=== PATIENT | female | born 1995 | race Caucasian/White ===

== ENCOUNTER 2018-03-09 02:37 | Emergency (ER) | payer BC ==
[2018-03-09] MEDS ORDERED: valACYclovir 500 MG Tab PO ONE (03:10)
[2018-03-09] MEDS ORDERED: HYDROmorphone 1 MG/ML Syringe IVPUSH ONE (03:10)
[2018-03-09] MEDS ORDERED: Ondansetron 4 MG/2 ML SDV IVPUSH ONE (03:10)
[2018-03-09] MEDS ORDERED: Dextrose 5%-0.9% NaCl 1,000 ML IV SCH (03:15)
[2018-03-09] MEDS ORDERED: Ketorolac 30 MG/ML SDV IVPUSH SCH (03:15)
--- NOTE | 2018-03-09 03:15 | EDM.PDOC ---
ED HPI GENERAL MEDICAL PROBLEM - General Chief Complaint: ENT Problem Stated Complaint: SORE TONGUE Time Seen by Provider: 03/09/18 03:09 Source of Information: Reports: Patient History Limitations: Reports: No Limitations - History of Present Illness INITIAL COMMENTS - FREE TEXT/NARRATIVE: 22-year-old female presents to the ED with acute onset of severe stomatitis 48 hours. So bad she can hardly swallow at all. She has had very little to eat or drink in the last 24 hours. Patient has been seen in the walk-in clinic and had a negative Monospot negative strep screen and negative yeast screen. Patient states her lymph nodes are severely sore. She is febrile with no obvious chills. Her temperature is 100.6 does have a headache. Patient states she is sexually active. No prior similar problems. No history of cold sores. Has been taking Motrin every 6 hours for headache and pain relief with minimal relief. Also using a mixed up solution containing Benadryl and Maalox similar to medical mouthwash gets relief for only a a few minutes. Denies cough or sputum production. Denies diarrhea nausea or vomiting. Denies genitourinary complaints. Patient was started on a Medrol Dosepak of which she's taken 1 day of medication. Onset: Sudden Onset Date: 03/06/18 Duration: Day(s):, Constant, Getting Worse Location: Reports: Neck (Severe oral pain involving her tongue gingiva throat) Quality: Reports: Ache, Burning, Other Severity: Severe (Anus 10 on a 10) Improves with: Reports: Medication (Motrin helps a little) Worsens with: Reports: Other Context: Denies: Activity (Swallowing trying to eat.), Exercise, Lifting, Sick Contact, Trauma, Other Associated Symptoms: Reports: Fever/Chills, Headaches, Loss of Appetite, Malaise , Rash. Denies: Chest Pain, cough w sputum, Diaphoresis, Nausea/Vomiting, Seizure, Shortness of Breath (Oral stomatitis), Syncope Treatments ORDER DETAILER: Reports: NSAIDS (Motrin.) Mouth/tongue Pain Score (Numeric/FACES): 8 - Related Data Allergies Allergy/AdvReac Type Severity Reaction Status Date / Time No Known Allergies Allergy Verified 03/09/18 03:18 Home Meds: Home Meds methylPREDNISolone [Medrol] 1 dose PO ASDIRECTED 03/09/18 [History] oxyCODONE HCl/Acetaminophen [Percocet 5-325 mg Tablet] 1 - 2 each PO Q4H PRN # 24 tablet 03/09/18 [Rx] valACYclovir [Valtrex] 1,000 mg PO TID #21 tab 03/09/18 [Rx] Past Medical History Neurological History: Reports: Other (See Below) Other Neuro History: fibromyalgia - Past Surgical History HEENT Surgical History: Reports: Adenoidectomy, Myringotomy w Tube(s), Tonsillectomy Social & Family History - Tobacco Use Smoking Status *Q: Never Smoker - Caffeine Use Caffeine Use: Reports: None - Recreational Drug Use Recreational Drug Use: No - Living Situation & Occupation Living situation: Reports: Single Occupation: Unemployed ED ROS ENT - Review of Systems Review Of Systems: See Below Constitutional: Reports: Fever, Chills, Malaise, Weakness, Fatigue, Decreased Appetite HEENT: Reports: Throat Pain, Other (Severe throat pain or tongue pain) Respiratory: Denies: Shortness of Breath, Wheezing, Pleuritic Chest Pain, Cough Cardiovascular: Reports: Lightheadedness. Denies: Chest Pain, Blood Pressure Problem, Claudication, Dyspnea on Exertion, Edema, Orthopnea Endocrine: Reports: Fatigue (At times with standing up) GI/Abdominal: Denies: Constipation, Diarrhea : Reports: No Symptoms Musculoskeletal: Reports: No Symptoms Skin: Reports: Rash (Severe oral stomatitis) Neurological: Reports: No Symptoms Psychiatric: Reports: No Symptoms Hematologic/Lymphatic: Reports: No Symptoms Immunologic: Reports: No Symptoms ED EXAM, ENT - Physical Exam Exam: See Below Exam Limited By: No Limitations General Appearance: Alert, WD/WN, Moderate Distress, Other (Facial flushing and very warm to palpation. 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 She can't remember how many times she has had tubes. She believes her hearing is decreased bilaterally.) Nose: Normal Inspection Mouth/Throat: Gum Swelling, Lip Ulcers, Other (Patient has diffuse ulcerations of the oral cavity involving the soft palate both buccal mucosas the gingiva and severe ulcerative glossitis. For the mouth is intact. Tonsils are absent.). No: Dental Tenderness, Dental Trauma Head: Atraumatic, Normocephalic Neck: Normal Inspection, Full Range of Motion, Lymphadenopathy (L) (Mild very tender mild very tender), Lymphadenopathy (R). No: Thyromegaly Respiratory/Chest: No Respiratory Distress, Lungs Clear, Normal Breath Sounds, Chest Non-Tender Cardiovascular: Normal Peripheral Pulses, No Edema, No Gallop, No Murmur, No Rub , Tachycardia (Resting heart rate of 114 per minute presumably due to fever but also compounded by poor oral intake over the last 24 hours) GI/Abdominal: Normal Bowel Sounds, Soft, Non-Tender, No Organomegaly, No Mass, Pelvis Stable Back: Normal Inspection, Full Range of Motion. No: CVA Tenderness (L), CVA Tenderness (R) Extremities: Normal Inspection, Normal Range of Motion, Non-Tender, No Pedal Edema Neurological: Alert, Oriented, CN II-XII Intact, Normal Cognition Psychiatric: Anxious Skin: Warm, Dry, Intact, Other (Diffuse orals stomatitis involving the tongue buccal mucosa and gingiva and soft palate. Also the posterior oropharynx is involved. 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) Course - Vital Signs Last Recorded V/S: Last Vital Signs Temp 38.8 C H 03/09/18 03:56 Pulse 114 H 03/09/18 02:47 Resp 16 03/09/18 02:47 BP 137/92 H 03/09/18 02:47 Pulse Ox 94 L 03/09/18 02:47 - Orders/Labs/Meds Orders: Active Orders 24 hr Category Date Time Status Dextrose 5%-0.9% NaCl [Dextrose 5%-Normal Saline] 1,000 Med 03/09/18 03:15 Active ml IV ASDIRECTED Ketorolac [Toradol] Med 03/09/18 03:15 Active 30 mg IVPUSH ONETIME Medication Orders Dextrose/Sodium Chloride (Dextrose 5%-Normal Saline) 1,000 mls @ 999 mls/hr IV ASDIRECTED KEV Last Admin: 03/09/18 03:18 Dose: 999 mls/hr Ketorolac Tromethamine (Toradol) 30 mg IVPUSH ONETIME KEV Last Admin: 03/09/18 03:19 Dose: 30 mg Labs: Laboratory Tests 03/09/18 03/09/18 03/09/18 Range/Units 03:25 03:25 03:25 WBC 10.67 H (3.98-10.04) K/mm3 RBC 5.11 (3.98-5.22) M/mm3 Hgb 15.0 (11.2-15.7) gm/L Hct 43.4 (34.1-44.9) % MCV 84.9 (79.4-94.8) fl MCH 29.4 (25.6-32.2) pg MCHC 34.6 (32.2-35.5) g/dl RDW Std Deviation 40.3 (36.4-46.3) fL Plt Count 203 (182-369) K/mm3 MPV 10.2 (9.4-12.3) fl Neutrophils % (Manual) 79 H (40-60) % Band Neutrophils % 0 (0-10) % Lymphocytes % (Manual) 15 L (20-40) % Atypical Lymphs % 0 % Monocytes % (Manual) 6 (2-10) % Eosinophils % (Manual) 0 L (0.7-5.8) % Basophils % (Manual) 0 L (0.1-1.2) Platelet Estimate Adequate RBC Morph Comment Normal Sodium 137 (136-145) mEq/L Potassium 4.1 (3.5-5.1) mEq/L Chloride 101 (98-107) mEq/L Carbon Dioxide 27 (21-32) mEq/L Anion Gap 13.1 (5-15) BUN 10 (7-18) mg/dL Creatinine 1.1 H (0.55-1.02) mg/dL Est Cr Clr Drug Dosing 69.86 mL/min Estimated GFR (MDRD) > 60 (>60) mL/min BUN/Creatinine Ratio 9.1 L (14-18) Glucose 125 H (74-106) mg/dL Calcium 9.0 (8.5-10.1) mg/dL Total Bilirubin 0.4 (0.2-1.0) mg/dL AST 17 (15-37) U/L ALT 16 (14-59) U/L Alkaline Phosphatase 34 L (46-116) U/L C-Reactive Protein 1.6 H* (<1.0) mg/dL Total Protein 7.3 (6.4-8.2) g/dl Albumin 4.0 (3.4-5.0) g/dl Globulin 3.3 gm/dL Albumin/Globulin Ratio 1.2 (1-2) HCG, Qual Negative (NEGATIVE) Meds: Medications Generic Name Dose Route Start Last Admin Trade Name Danis PRN Reason Stop Dose Admin Dextrose/Sodium Chloride 1,000 mls @ 999 mls/hr 03/09/18 03:15 03/09/18 03:18 Dextrose 5%-Normal Saline IV 999 mls/hr ASDIRECTED KEV Administration Ketorolac Tromethamine 30 mg 03/09/18 03:15 03/09/18 03:19 Toradol IVPUSH 30 mg ONETIME KEV Administration Discontinued Medications Generic Name Dose Route Start Last Admin Trade Name Danis PRN Reason Stop Dose Admin Acetaminophen 975 mg 03/09/18 03:33 03/09/18 03:56 Tylenol PO 03/09/18 03:34 975 mg NOW ONE Administration Hydromorphone HCl 1 mg 03/09/18 03:10 03/09/18 03:19 Dilaudid IVPUSH 03/09/18 03:11 1 mg ONETIME ONE Administration Ondansetron HCl 4 mg 03/09/18 03:10 03/09/18 03:19 Zofran IVPUSH 03/09/18 03:11 4 mg ONETIME ONE Administration Valacyclovir HCl 1,000 mg 03/09/18 03:10 03/09/18 03:19 Valtrex PO 03/09/18 03:11 1,000 mg ONETIME ONE Administration - Radiology Interpretation Free Text/Narrative:: 22-year-old female presents with a 2 day history of severe stomatitis. Patient is in severe pain at this time unable to sleep unable to swallow unable to eat. She was seen in the clinic yesterday and had a negative Monospot. Negative strep screen. Negative yeast screen. She was placed on a Medrol Dosepak. She is taking Motrin 600 mg every 6 hours. She is taking a miracle mouthwash that she mixes up which is mostly Maalox and Benadryl. Examination reveals diffuse ulcerative stomatitis involving the tongue soft palate buccal mucosa and gingiva clinically has primary herpes simplex stomatitis. Plan IV D5 normal saline at open. Given Dilaudid 1 mg IV with Zofran 4 mg IV and Toradol 30 mg IV for acute pain relief. Will also give Tylenol 975mg orally for fever relief. Will also give Delsym severe 1 g orally. CBC CMP and CRP to be done. Also be a beta-hCG serum sample. - Re-Assessments/Exams Free Text/Narrative Re-Assessment/Exam: 03/09/18 04:12 Labs are back. White count is mildly elevated at 10.67 with left shift of 79% neutrophils and no band cells reported. Hemoglobin is 15.0 with hematocrit of 43.4. Platelet count is normal 203,000. Sodium is 137 with potassium of 4.1. Chloride is 101 with a bicarbonate 27. Anion gap is 13.1. BUNs 10 with a creatinine of 1.1. GFR is greater than 60. Glucose is 125. Calcium 9.0. Liver function is normal. C-reactive protein minimally elevated at 1.6. HCG was negative. Patient reports pain is much better. She is neat nearly completed a full liter of IV fluids. Fever is breaking. Plan she'll be discharged home on Ivette Kabir 1 g 3 times a day for one week. Percocet tabs 5// 25 24 tablets one or 2 every 4-6 hours needed for pain relief. Continue Motrin 600 mg every 6 hours to reduce pain and inflammation and fever. Encouraged fluids as much as possible. Diet soft diet such as yogurt ,puddings etc. until able to eat normally. Will be given to excuse her from the work place for the next week. Departure - Departure Time of Disposition: 04:18 Disposition: Home, Self-Care 01 Condition: Fair Clinical Impression: Primary herpes simplex with gingivostomatitis - Discharge Information *PRESCRIPTION DRUG MONITORING PROGRAM REVIEWED*: Not Applicable *COPY OF PRESCRIPTION DRUG MONITORING REPORT IN PATIENT TAIWO: Not Applicable Prescriptions: oxyCODONE HCl/Acetaminophen [Percocet 5-325 mg Tablet] 1 - 2 each PO Q4H PRN # 24 tablet PRN Reason: pain relief. valACYclovir [Valtrex] 1,000 mg PO TID #21 tab Referrals: PCP,None [Primary Care Provider] - Forms: ED Department Discharge, ED Return to Work/School Form Additional Instructions: Evaluation in the emergency room tonight in regards to severe throat and mouth pain. This developed suddenly 48 hours ago. Examination reveals acute infection with the herpes simplex virus which we call gingiva stomatitis. This means inflammation of the oral cavity including the tongue and gums. You're treated in the eye ER with IV fluids to rehydrate you and pain medication Dilaudid 1 mg with Toradol 30 mg IV. Also initial dose of valacyclovir 1 g was given by mouth to start treatment for herpes simplex infection and with Tylenol 975 mg for fever. Treatment at home is fluids as tolerated. Ideally diluted Gatorade/ Powerade would be the best fluid supplements prevent dehydration. Diet of course to be soft such as puddings possibly yogurt and other foods that don't sting or burn. Not be able to tolerate anything acidic such as orange juice, ketchup, mustard, pickles etc. Treatment is to be Motrin 600 mg every 6 hours to reduce pain and inflammation and fever. Percocet tabs 5/325 mg one or 2 every 4-6 hours for pain relief. Valcyclovir-- 1 g 3 times daily for the next week. Note given to excuse her from the work place for the next week. This illness typically last 7-10 days before you are completely cleared up. You are now prone to development of cold sores in the future. Return to the ED if unable to drink or eat in the next 24-36 hours for rehydration IV if necessary. - My Orders Last 24 Hours: My Active Orders 03/09/18 03:15 Dextrose 5%-0.9% NaCl [Dextrose 5%-Normal Saline] 1,000 ml IV ASDIRECTED Ketorolac [Toradol] 30 mg IVPUSH ONETIME - Assessment/Plan Last 24 Hours: My Active Orders 03/09/18 03:15 Dextrose 5%-0.9% NaCl [Dextrose 5%-Normal Saline] 1,000 ml IV ASDIRECTED Ketorolac [Toradol] 30 mg IVPUSH ONETIME
[2018-03-09] MEDS ORDERED: Acetaminophen 325 MG Tab PO ONE (03:33)
== END 2018-03-09 04:35 | disposition home or self-care (01) ==
LOC: JD.ED 02:37
DX: B00.2 Herpesviral gingivostomatitis and pharyngotonsillitis (principal)
CPT/HCPCS: 36415; 80053; 84703; 85007; 85027; 86140; 96361; 96374; 96375; 99283; A9270; J1170; J1885; J2405; J7042; 99284

== ENCOUNTER 2018-03-10 19:48 | Inpatient (IN) | payer BC ==
[2018-03-10] MEDS ORDERED: Sodium Chloride 0.9% 1,000 ML IV ONE ×2 (20:24→22:39)
[2018-03-10] MEDS ORDERED: Sodium Chloride 0.9% 10 ML Syringe FLUSH PRN (20:25)
[2018-03-10] MEDS ORDERED: HYDROmorphone 0.5 MG/0.5 ML SYRINGE IVPUSH ONE ×2 (20:25→22:34)
[2018-03-10] MEDS ORDERED: Ketorolac 30 MG/ML SDV IVPUSH ONE (20:25)
--- NOTE | 2018-03-10 20:46 | EDM.PDOC ---
ED HPI GENERAL MEDICAL PROBLEM - General Chief Complaint: General Stated Complaint: INFECTION IN MOUTH GETTING WORSE Time Seen by Provider: 03/10/18 20:11 Source of Information: Reports: Patient History Limitations: Reports: No Limitations - History of Present Illness INITIAL COMMENTS - FREE TEXT/NARRATIVE: 22-year-old female presents for pain management for severe herpes stomatits. Has been present going on for about the last 3-4 days. She states initially started with lymphadenopathy. She that appreciated sores in her mouth. She presented to the walk-in clinic. Test redone for strep, mono and yeast. All returned negative. She was started on Medrol Dosepak. Symptoms worsens and she presented to the ER 2 nights ago, diagnoised Herpes stomatitis and was started on Valtrex instructed to discontinue the Medrol Dosepak. She was also given Percocet for the pain. She has been taking the Valtrex as prescribed. She states that the symptoms are worsening. She states hardly swallow due to the pain. She reports feeling feverish and chilled. She reports severe pain in her mouth and throat and difficulty swallowing. She is also feeling that her throat is swelling. She reports voice changes. She is coughing a productive sputum. States she's never had anything like this before. Has previously had mono. Oral/Mouth Pain Score (Numeric/FACES): 10 - Related Data Allergies Allergy/AdvReac Type Severity Reaction Status Date / Time No Known Allergies Allergy Verified 03/10/18 19:59 Home Meds: Home Meds methylPREDNISolone [Medrol] 1 dose PO ASDIRECTED 03/09/18 [History] oxyCODONE HCl/Acetaminophen [Percocet 5-325 mg Tablet] 1 - 2 each PO Q4H PRN # 24 tablet 03/09/18 [Rx] valACYclovir [Valtrex] 1,000 mg PO TID #21 tab 03/09/18 [Rx] Past Medical History Neurological History: Reports: Other (See Below) Other Neuro History: fibromyalgia - Past Surgical History HEENT Surgical History: Reports: Adenoidectomy, Myringotomy w Tube(s), Tonsillectomy Social & Family History - Tobacco Use Smoking Status *Q: Unknown Ever Smoked - Caffeine Use Caffeine Use: Reports: None - Living Situation & Occupation Living situation: Reports: Single Occupation: Unemployed ED ROS GENERAL - Review of Systems Review Of Systems: See Below Constitutional: Reports: Fever, Chills HEENT: Reports: Throat Pain, Throat Swelling, Other (Mouth pain, difficulty swallowing due to pain. Ulcerative lesions to mouth.) Respiratory: Reports: Cough ED EXAM, GENERAL - Physical Exam Exam: See Below Exam Limited By: No Limitations General Appearance: Alert, WD/WN, No Apparent Distress, Mild Distress Ears: Normal External Exam, Other (scarring to the bilteral TMs, no erythema or bulding) Nose: Normal Inspection Throat/Mouth: Other (diffuse herpetic lesions to the buccal mucose, soft pallate and tongue; hot potatoe sounding voice) Neck: Lymphadenopathy (L), Lymphadenopathy (R), Other (Submandibular and anterior cervical lymphadenopathy appreciated bilaterally) Respiratory/Chest: No Respiratory Distress, Lungs Clear, Normal Breath Sounds Cardiovascular: Normal Peripheral Pulses, Regular Rate, Rhythm, No Murmur Neurological: Alert, Oriented, Normal Cognition Psychiatric: Normal Affect, Normal Mood Skin Exam: Warm, Dry, Normal Color Course - Vital Signs Last Recorded V/S: Last Vital Signs Temp 98.8 F 03/11/18 00:10 Pulse 74 03/11/18 00:10 Resp 18 03/11/18 00:10 BP 122/71 03/11/18 00:10 Pulse Ox 96 03/11/18 00:10 - Orders/Labs/Meds Orders: Active Orders 24 hr Category Date Time Status Patient Status [ADT] Routine ADT 03/10/18 23:53 Active Head wo Cont [CT] Stat Exams 03/10/18 20:58 Taken Soft Tissue Neck w Cont [CT] Stat Exams 03/10/18 20:25 Taken Sodium Chloride 0.9% [Normal Saline] 1,000 ml Med 03/10/18 22:39 Active IV ONETIME Sodium Chloride 0.9% [Saline Flush] Med 03/10/18 20:25 Active 10 ml FLUSH ASDIRECTED PRN Peripheral IV Insertion Adult [OM.PC] Routine Oth 03/10/18 20:24 Ordered Medication Orders Acetaminophen (Tylenol) 650 mg PO Q4H PRN PRN Reason: Pain/Fever Hydromorphone HCl (Dilaudid) 0.25 mg IVPUSH Q4H PRN PRN Reason: Pain Last Admin: 03/11/18 01:20 Dose: 0.25 mg Sodium Chloride (Normal Saline) 1,000 mls @ 125 mls/hr IV ONETIME ONE Stop: 03/11/18 06:38 Last Admin: 03/10/18 23:06 Dose: 125 mls/hr Acyclovir 385 mg/ Sodium (Chloride) 107.7 mls @ 100 mls/hr IV Q8H [facility] Lactated Ringer's (Ringers, Lactated) 1,000 mls @ 999 mls/hr IV ASDIRECTED KEV Stop: 03/12/18 02:31 Lactated Ringer's (Ringers, Lactated) 1,000 mls @ 100 mls/hr IV ASDIRECTED [facility] Ketorolac Tromethamine (Toradol) 30 mg IVPUSH Q6H KEV Stop: 03/13/18 00:01 Ondansetron HCl (Zofran) 4 mg IVPUSH Q8H PRN PRN Reason: Nausea Sodium Chloride (Saline Flush) 10 ml FLUSH ASDIRECTED PRN PRN Reason: Keep Vein Open Last Admin: 03/10/18 20:54 Dose: 10 ml Labs: Laboratory Tests 03/10/18 03/10/18 03/10/18 Range/Units 20:50 20:50 20:50 WBC 6.93 (3.98-10.04) K/mm3 RBC 5.05 (3.98-5.22) M/mm3 Hgb 14.7 (11.2-15.7) gm/L Hct 43.1 (34.1-44.9) % MCV 85.3 (79.4-94.8) fl MCH 29.1 (25.6-32.2) pg MCHC 34.1 (32.2-35.5) g/dl RDW Std Deviation 40.4 (36.4-46.3) fL Plt Count 167 L (182-369) K/mm3 MPV 9.9 (9.4-12.3) fl Neutrophils % (Manual) 51 (40-60) % Band Neutrophils % 0 (0-10) % Lymphocytes % (Manual) 37 (20-40) % Atypical Lymphs % 0 % Monocytes % (Manual) 12 H (2-10) % Eosinophils % (Manual) 0 L (0.7-5.8) % Basophils % (Manual) 0 L (0.1-1.2) Platelet Estimate Adequate Plt Morphology Comment Normal RBC Morph Comment Normal Sodium 140 (136-145) mEq/L Potassium 3.7 (3.5-5.1) mEq/L Chloride 104 (98-107) mEq/L Carbon Dioxide 28 (21-32) mEq/L Anion Gap 11.7 (5-15) BUN 9 (7-18) mg/dL Creatinine 1.0 (0.55-1.02) mg/dL Est Cr Clr Drug Dosing TNP Estimated GFR (MDRD) > 60 (>60) mL/min BUN/Creatinine Ratio 9.0 L (14-18) Glucose 93 (74-106) mg/dL Calcium 9.1 (8.5-10.1) mg/dL Total Bilirubin 0.5 (0.2-1.0) mg/dL AST 19 (15-37) U/L ALT 17 (14-59) U/L Alkaline Phosphatase 28 L (46-116) U/L C-Reactive Protein 3.4 H* (<1.0) mg/dL Total Protein 7.0 (6.4-8.2) g/dl Albumin 3.6 (3.4-5.0) g/dl Globulin 3.4 gm/dL Albumin/Globulin Ratio 1.1 (1-2) Monoscreen Negative (NEGATIVE) HIV-1 Ab Rapid Screen (NEGATIVE) 03/10/18 Range/Units 20:50 WBC (3.98-10.04) K/mm3 RBC (3.98-5.22) M/mm3 Hgb (11.2-15.7) gm/L Hct (34.1-44.9) % MCV (79.4-94.8) fl MCH (25.6-32.2) pg MCHC (32.2-35.5) g/dl RDW Std Deviation (36.4-46.3) fL Plt Count (182-369) K/mm3 MPV (9.4-12.3) fl Neutrophils % (Manual) (40-60) % Band Neutrophils % (0-10) % Lymphocytes % (Manual) (20-40) % Atypical Lymphs % % Monocytes % (Manual) (2-10) % Eosinophils % (Manual) (0.7-5.8) % Basophils % (Manual) (0.1-1.2) Platelet Estimate Plt Morphology Comment RBC Morph Comment Sodium (136-145) mEq/L Potassium (3.5-5.1) mEq/L Chloride (98-107) mEq/L Carbon Dioxide (21-32) mEq/L Anion Gap (5-15) BUN (7-18) mg/dL Creatinine (0.55-1.02) mg/dL Est Cr Clr Drug Dosing Estimated GFR (MDRD) (>60) mL/min BUN/Creatinine Ratio (14-18) Glucose (74-106) mg/dL Calcium (8.5-10.1) mg/dL Total Bilirubin (0.2-1.0) mg/dL AST (15-37) U/L ALT (14-59) U/L Alkaline Phosphatase (46-116) U/L C-Reactive Protein (<1.0) mg/dL Total Protein (6.4-8.2) g/dl Albumin (3.4-5.0) g/dl Globulin gm/dL Albumin/Globulin Ratio (1-2) Monoscreen (NEGATIVE) HIV-1 Ab Rapid Screen Negative (NEGATIVE) Meds: Medications Generic Name Dose Route Start Last Admin Trade Name Freq PRN Reason Stop Dose Admin Acetaminophen 650 mg 03/11/18 00:54 Tylenol PO Q4H PRN Pain/Fever Hydromorphone HCl 0.25 mg 03/11/18 00:56 03/11/18 01:20 Dilaudid IVPUSH 0.25 mg Q4H PRN Administration Pain Sodium Chloride 1,000 mls @ 125 mls/hr 03/10/18 22:39 03/10/18 23:06 Normal Saline IV 03/11/18 06:38 125 mls/hr ONETIME ONE Administration Acyclovir 385 mg/ Sodium 107.7 mls @ 100 mls/hr 03/11/18 08:00 Chloride IV Q8H [facility] Lactated Ringer's 1,000 mls @ 999 mls/hr 03/11/18 01:30 Ringers, Lactated IV 03/12/18 02:31 ASDIRECTED [facility] Lactated Ringer's 1,000 mls @ 100 mls/hr 03/11/18 02:30 Ringers, Lactated IV ASDIRECTED [facility] Ketorolac Tromethamine 30 mg 03/11/18 06:00 Toradol IVPUSH 03/13/18 00:01 Q6H KEV Ondansetron HCl 4 mg 03/11/18 01:29 Zofran IVPUSH Q8H PRN Nausea Sodium Chloride 10 ml 03/10/18 20:25 03/10/18 20:54 Saline Flush FLUSH 10 ml ASDIRECTED PRN Administration Keep Vein Open Discontinued Medications Generic Name Dose Route Start Last Admin Trade Name Freq PRN Reason Stop Dose Admin Hydromorphone HCl 0.5 mg 03/10/18 20:25 03/10/18 20:55 Dilaudid IVPUSH 03/10/18 20:26 0.5 mg ONETIME ONE Administration Hydromorphone HCl 0.5 mg 03/10/18 22:34 03/10/18 23:05 Dilaudid IVPUSH 03/10/18 22:35 0.5 mg ONETIME ONE Administration Sodium Chloride 1,000 mls @ 999 mls/hr 03/10/18 20:24 03/10/18 20:54 Normal Saline IV 03/10/18 21:24 999 mls/hr ONETIME ONE Administration Acyclovir 400 mg/ Sodium 108 mls @ 100 mls/hr 03/10/18 23:26 03/10/18 23:50 Chloride IV 03/11/18 00:30 100 mls/hr NOW STA Administration Iopamidol 80 ml 03/11/18 00:15 03/11/18 00:16 Isovue-300 (61%) IVPUSH 03/11/18 00:16 80 ml ONETIME ONE Administration Ketorolac Tromethamine 30 mg 03/10/18 20:25 03/10/18 20:58 Toradol IVPUSH 03/10/18 20:26 30 mg ONETIME ONE Administration Ketorolac Tromethamine 30 mg 03/10/18 23:26 03/10/18 23:50 Toradol IM 03/10/18 23:27 30 mg ONETIME ONE Administration Lorazepam 0.25 mg 03/11/18 00:55 03/11/18 01:22 Ativan IVPUSH 03/11/18 00:56 0.25 mg ONETIME ONE Administration - Radiology Interpretation Free Text/Narrative:: CT of the head without contrast impression per Vrad negative. No acute intercranial process. CT of the neck with IV contrast impression per Vrad no acute findings. - Re-Assessments/Exams Free Text/Narrative Re-Assessment/Exam: 03/10/18 22:16 I reviewed the labs and imaging with the patient. I do feel that she is improving and requires more time with the valtrex. Offered admission for pain control. She will discuss this with her brother mother and let me know shortly. 03/10/18 23:45 Patient ultimately decided to come in for inpatient management including fluids and pain control. Case was discussed with Dr. Bassett, hospitalist on-call. She agrees to admission. Asked we give acyclovir 5 mg/kg prior to going over to the floor as well as [address] Bassett feels she'll be best managed with NSAIDs and will not be treating her much with narcotics. Patient was made aware of this and she is still agreeable to coming in. Departure - Departure Time of Disposition: 23:40 Disposition: Admitted As Inpatient 67 Condition: Fair Clinical Impression: Primary herpes simplex with gingivostomatitis - Discharge Information *PRESCRIPTION DRUG MONITORING PROGRAM REVIEWED*: No *COPY OF PRESCRIPTION DRUG MONITORING REPORT IN PATIENT TAIWO: No - My Orders Last 24 Hours: My Active Orders 03/10/18 20:24 Peripheral IV Insertion Adult [OM.PC] Routine 03/10/18 20:25 Soft Tissue Neck w Cont [CT] Stat Sodium Chloride 0.9% [Saline Flush] 10 ml FLUSH ASDIRECTED PRN 03/10/18 20:58 Head wo Cont [CT] Stat 03/10/18 22:39 Sodium Chloride 0.9% [Normal Saline] 1,000 ml IV ONETIME 03/10/18 23:53 Patient Status [ADT] Routine - Assessment/Plan Last 24 Hours: My Active Orders 03/10/18 20:24 Peripheral IV Insertion Adult [OM.PC] Routine 03/10/18 20:25 Soft Tissue Neck w Cont [CT] Stat Sodium Chloride 0.9% [Saline Flush] 10 ml FLUSH ASDIRECTED PRN 03/10/18 20:58 Head wo Cont [CT] Stat 03/10/18 22:39 Sodium Chloride 0.9% [Normal Saline] 1,000 ml IV ONETIME 03/10/18 23:53 Patient Status [ADT] Routine
[2018-03-10] MEDS ORDERED: Acyclovir 400 MG in Sodium Chloride 0.9% 100 ML IV STA (23:26)
[2018-03-10] MEDS ORDERED: Ketorolac 30 MG/ML SDV IM ONE (23:26)
[2018-03-11] MEDS ORDERED: Iopamidol 612 MG/ML 100 ML Bottle IVPUSH ONE (00:15)
[2018-03-11] MEDS ORDERED: Acetaminophen Soln 650 MG/20.3 ML UD Cup PO PRN ×2 (00:54→07:44)
[2018-03-11] MEDS ORDERED: LORazepam 2 MG/ML SDV IVPUSH ONE (00:55)
[2018-03-11] MEDS ORDERED: HYDROmorphone 1 MG/ML Syringe IVPUSH PRN (00:56)
[2018-03-11] MEDS: Lactated Ringers 1,000 ML IV SCH ×4 (01:40→14:28)
[2018-03-11] MEDS: Ondansetron 4 MG/2 ML SDV IVPUSH PRN (01:48)
[2018-03-11] MEDS ORDERED: Scopolamine 1.5 MG Transdermal Patch TRDERM PRN (06:24)
[2018-03-11] MEDS: Ketorolac 30 MG/ML SDV IVPUSH SCH ×3 (06:28→17:03)
--- NOTE | 2018-03-11 07:17 | PCM.HP ---
H&P History of Present Illness - General Date of Service: 03/11/18 Admit Problem/Dx: Admission Diagnosis/Problem Admission Diagnosis/Problem Herpesviral gingivostomatitis and pharyngotonsillitis Source of Information: Patient, Provider History Limitations: Reports: No Limitations - History of Present Illness Initial Comments - Free Text/Narative: 22 year old who was seen in a walk in clinic presents with failed anti-viral therapy, she has been on Valtrex/Percocet/Medrol Dosepak. The patient over 48 hours had had increasing difficulty swallowing, change in voice and decreased appetite. She has had fever and chills for 2 days as well. Infectious work up with the exception of herpes simplex has been unremarkable including HIV. She had had a CT of head and neck which documented no compromise in her airway. She will be admitted to [facility] with telemetry. The patient is a full code. Onset of Symptoms: Reports: Gradual Symptom Onset Date: 03/05/18 Duration of Symptoms: Reports: Day(s):, Getting Worse Location: Reports: Neck Quality: Reports: Same as Previous Episode Severity: Severe Improves with: Reports: Medication Worsens with: Reports: None Associated Symptoms: Reports: Cough, Fever/Chills, Loss of Appetite, Nausea/ Vomiting, Weakness Oral/Mouth Pain Score (Numeric/FACES): 4 - Related Data Allergies/Adverse Reactions: Allergies Allergy/AdvReac Type Severity Reaction Status Date / Time No Known Allergies Allergy Verified 03/11/18 02:16 Home Medications: Home Meds methylPREDNISolone [Medrol] 1 dose PO ASDIRECTED 03/09/18 [History] oxyCODONE HCl/Acetaminophen [Percocet 5-325 mg Tablet] 1 - 2 each PO Q4H PRN # 24 tablet 03/09/18 [Rx] valACYclovir [Valtrex] 1,000 mg PO TID #21 tab 03/09/18 [Rx] Past Medical History Musculoskeletal History: Reports: Fibromyalgia Neurological History: Reports: Other (See Below) Other Neuro History: fibromyalgia Psychiatric History: Reports: Anxiety Other Psychiatric History: sees a therapist and is not on any meds for it - Infectious Disease History Infectious Disease History: Reports: Chicken Pox, Herpes, Influenza - Past Surgical History HEENT Surgical History: Reports: Adenoidectomy, Myringotomy w Tube(s), Tonsillectomy Social & Family History - Family History Family Medical History: Noncontributory - Tobacco Use Smoking Status *Q: Unknown Ever Smoked Second Hand Smoke Exposure: No - Caffeine Use Caffeine Use: Reports: None - Recreational Drug Use Recreational Drug Use: No - Living Situation & Occupation Living situation: Reports: Single Occupation: Unemployed H&P Review of Systems - Review of Systems: Review Of Systems: See Below General: Reports: Fever, Chills, Malaise, Weakness, Fatigue, Decreased Appetite HEENT: Reports: Sore Throat Pulmonary: Reports: No Symptoms Cardiovascular: Reports: No Symptoms Gastrointestinal: Reports: Difficulty Swallowing, Nausea Genitourinary: Reports: No Symptoms Musculoskeletal: Reports: Neck Pain Skin: Reports: No Symptoms Psychiatric: Reports: No Symptoms Neurological: Reports: No Symptoms Hematologic/Lymphatic: Reports: No Symptoms Immunologic: Reports: No Symptoms Exam - Exam Exam: See Below - Vital Signs Vital Signs: Last Vital Signs Temp 36.3 C 03/11/18 03:55 Pulse 72 03/11/18 03:55 Resp 18 03/11/18 03:55 BP 131/63 03/11/18 03:55 Pulse Ox 98 03/11/18 03:55 Weight: 76.929 kg - Exam Quality Assessment: DVT Prophylaxis General: Alert, Oriented, Cooperative HEENT: Conjunctiva Clear, Pupils Equal, Pupils Reactive, TMs Clear, Other ( cervical/submandibular lympadenopathy; edema/erythema tonsils), PERRLA Neck: Trachea Midline Lungs: Normal Respiratory Effort Cardiovascular: Regular Rate, Regular Rhythm GI/Abdominal Exam: Normal Bowel Sounds, Soft, Non-Tender, No Organomegaly, No Distention (Female) Exam: Deferred Rectal (Female) Exam: Deferred Back Exam: Normal Inspection Extremities: Normal Inspection, Normal Range of Motion, Non-Tender, Normal Capillary Refill Skin: Warm Neurological: Cranial Nerves Intact Neuro Extensive - Mental Status: Alert, Oriented x3, Normal Mood/Affect, Normal Cognition, Memory Intact Neuro Extensive - Motor, Sensory, Reflexes: CN II-XII Intact Psychiatric: Alert, Normal Affect, Normal Mood - Patient Data Lab Results Last 24 hrs: Laboratory Results - last 24 hr 03/10/18 03/10/18 03/10/18 Range/Units 20:50 20:50 20:50 WBC 6.93 (3.98-10.04) K/mm3 RBC 5.05 (3.98-5.22) M/mm3 Hgb 14.7 (11.2-15.7) gm/L Hct 43.1 (34.1-44.9) % MCV 85.3 (79.4-94.8) fl MCH 29.1 (25.6-32.2) pg MCHC 34.1 (32.2-35.5) g/dl RDW Std Deviation 40.4 (36.4-46.3) fL Plt Count 167 L (182-369) K/mm3 MPV 9.9 (9.4-12.3) fl Neut % (Auto) (34.0-71.1) % Lymph % (Auto) (19.3-51.7) % [place] % (Auto) (4.7-12.5) % Eos % (Auto) (0.7-5.8) Baso % (Auto) (0.1-1.2) % Neut # (Auto) (1.56-6.13) K/mm3 Lymph # (Auto) (1.18-3.74) K/mm3 [place] # (Auto) (0.24-0.36) K/mm3 Eos # (Auto) (0.04-0.36) K/mm3 Baso # (Auto) (0.01-0.08) K/mm3 Neutrophils % (Manual) 51 (40-60) % Band Neutrophils % 0 (0-10) % Lymphocytes % (Manual) 37 (20-40) % Atypical Lymphs % 0 % Monocytes % (Manual) 12 H (2-10) % Eosinophils % (Manual) 0 L (0.7-5.8) % Basophils % (Manual) 0 L (0.1-1.2) Platelet Estimate Adequate Plt Morphology Comment Normal RBC Morph Comment Normal Sodium 140 (136-145) mEq/L Potassium 3.7 (3.5-5.1) mEq/L Chloride 104 (98-107) mEq/L Carbon Dioxide 28 (21-32) mEq/L Anion Gap 11.7 (5-15) BUN 9 (7-18) mg/dL Creatinine 1.0 (0.55-1.02) mg/dL Est Cr Clr Drug Dosing TNP Estimated GFR (MDRD) > 60 (>60) mL/min BUN/Creatinine Ratio 9.0 L (14-18) Glucose 93 (74-106) mg/dL Lactic Acid (0.4-2.0) mmol/L Calcium 9.1 (8.5-10.1) mg/dL Total Bilirubin 0.5 (0.2-1.0) mg/dL AST 19 (15-37) U/L ALT 17 (14-59) U/L Alkaline Phosphatase 28 L (46-116) U/L C-Reactive Protein 3.4 H* (<1.0) mg/dL Total Protein 7.0 (6.4-8.2) g/dl Albumin 3.6 (3.4-5.0) g/dl Globulin 3.4 gm/dL Albumin/Globulin Ratio 1.1 (1-2) Monoscreen Negative (NEGATIVE) HIV-1 Ab Rapid Screen (NEGATIVE) 03/10/18 03/11/18 03/11/18 Range/Units 20:50 06:15 06:15 WBC 5.26 (3.98-10.04) K/mm3 RBC 4.65 (3.98-5.22) M/mm3 Hgb 13.6 (11.2-15.7) gm/L Hct 40.3 (34.1-44.9) % MCV 86.7 (79.4-94.8) fl MCH 29.2 (25.6-32.2) pg MCHC 33.7 (32.2-35.5) g/dl RDW Std Deviation 40.6 (36.4-46.3) fL Plt Count 161 L (182-369) K/mm3 MPV 10.1 (9.4-12.3) fl Neut % (Auto) 50.1 (34.0-71.1) % Lymph % (Auto) 34.8 (19.3-51.7) % [place] % (Auto) 13.7 H (4.7-12.5) % Eos % (Auto) 0.8 (0.7-5.8) Baso % (Auto) 0.4 (0.1-1.2) % Neut # (Auto) 2.64 (1.56-6.13) K/mm3 Lymph # (Auto) 1.83 (1.18-3.74) K/mm3 [place] # (Auto) 0.72 H (0.24-0.36) K/mm3 Eos # (Auto) 0.04 (0.04-0.36) K/mm3 Baso # (Auto) 0.02 (0.01-0.08) K/mm3 Neutrophils % (Manual) (40-60) % Band Neutrophils % (0-10) % Lymphocytes % (Manual) (20-40) % Atypical Lymphs % % Monocytes % (Manual) (2-10) % Eosinophils % (Manual) (0.7-5.8) % Basophils % (Manual) (0.1-1.2) Platelet Estimate Plt Morphology Comment RBC Morph Comment Sodium 142 (136-145) mEq/L Potassium 3.8 (3.5-5.1) mEq/L Chloride 107 (98-107) mEq/L Carbon Dioxide 29 (21-32) mEq/L Anion Gap 9.8 (5-15) BUN 7 (7-18) mg/dL Creatinine 0.8 (0.55-1.02) mg/dL Est Cr Clr Drug Dosing 96.06 Estimated GFR (MDRD) > 60 (>60) mL/min BUN/Creatinine Ratio 8.8 L (14-18) Glucose 83 (74-106) mg/dL Lactic Acid (0.4-2.0) mmol/L Calcium 8.8 (8.5-10.1) mg/dL Total Bilirubin (0.2-1.0) mg/dL AST (15-37) U/L ALT (14-59) U/L Alkaline Phosphatase (46-116) U/L C-Reactive Protein 2.9 H* (<1.0) mg/dL Total Protein (6.4-8.2) g/dl Albumin (3.4-5.0) g/dl Globulin gm/dL Albumin/Globulin Ratio (1-2) Monoscreen (NEGATIVE) HIV-1 Ab Rapid Screen Negative (NEGATIVE) 03/11/18 Range/Units 06:15 WBC (3.98-10.04) K/mm3 RBC (3.98-5.22) M/mm3 Hgb (11.2-15.7) gm/L Hct (34.1-44.9) % MCV (79.4-94.8) fl MCH (25.6-32.2) pg MCHC (32.2-35.5) g/dl RDW Std Deviation (36.4-46.3) fL Plt Count (182-369) K/mm3 MPV (9.4-12.3) fl Neut % (Auto) (34.0-71.1) % Lymph % (Auto) (19.3-51.7) % [place] % (Auto) (4.7-12.5) % Eos % (Auto) (0.7-5.8) Baso % (Auto) (0.1-1.2) % Neut # (Auto) (1.56-6.13) K/mm3 Lymph # (Auto) (1.18-3.74) K/mm3 [place] # (Auto) (0.24-0.36) K/mm3 Eos # (Auto) (0.04-0.36) K/mm3 Baso # (Auto) (0.01-0.08) K/mm3 Neutrophils % (Manual) (40-60) % Band Neutrophils % (0-10) % Lymphocytes % (Manual) (20-40) % Atypical Lymphs % % Monocytes % (Manual) (2-10) % Eosinophils % (Manual) (0.7-5.8) % Basophils % (Manual) (0.1-1.2) Platelet Estimate Plt Morphology Comment RBC Morph Comment Sodium (136-145) mEq/L Potassium (3.5-5.1) mEq/L Chloride (98-107) mEq/L Carbon Dioxide (21-32) mEq/L Anion Gap (5-15) BUN (7-18) mg/dL Creatinine (0.55-1.02) mg/dL Est Cr Clr Drug Dosing Estimated GFR (MDRD) (>60) mL/min BUN/Creatinine Ratio (14-18) Glucose (74-106) mg/dL Lactic Acid 0.5 (0.4-2.0) mmol/L Calcium (8.5-10.1) mg/dL Total Bilirubin (0.2-1.0) mg/dL AST (15-37) U/L ALT (14-59) U/L Alkaline Phosphatase (46-116) U/L C-Reactive Protein (<1.0) mg/dL Total Protein (6.4-8.2) g/dl Albumin (3.4-5.0) g/dl Globulin gm/dL Albumin/Globulin Ratio (1-2) Monoscreen (NEGATIVE) HIV-1 Ab Rapid Screen (NEGATIVE) Result Diagrams: 03/11/18 06:15 03/11/18 06:15 Problem List Initiated/Reviewed/Updated: Yes Orders Last 24hrs: Active Orders 24 hr Category Date Time Status Patient Status [ADT] Routine ADT 03/10/18 23:53 Active Up ad Saba [RC] BID Care 03/11/18 01:04 Active Clear Liquid Diet [DIET] Diet 03/11/18 Breakfast Active Head wo Cont [CT] Stat Exams 03/10/18 20:58 Taken Soft Tissue Neck w Cont [CT] Stat Exams 03/10/18 20:25 Taken CBC WITH AUTO DIFF [HEME] Routine Lab 03/11/18 06:15 Results Acetaminophen [Tylenol] Med 03/11/18 00:54 Active 650 mg PO Q4H PRN Acyclovir [Zovirax] 385 mg Med 03/11/18 08:00 Active Sodium Chloride 0.9% [Normal Saline] 100 ml IV Q8H HYDROmorphone [Dilaudid] Med 03/11/18 00:56 Active 0.25 mg IVPUSH Q4H PRN Ketorolac [Toradol] Med 03/11/18 06:00 Active 30 mg IVPUSH Q6H Lactated Ringers [Ringers, Lactated] 1,000 ml Med 03/11/18 01:30 Active IV ASDIRECTED Lactated Ringers [Ringers, Lactated] 1,000 ml Med 03/11/18 02:30 Active IV ASDIRECTED Ondansetron [Zofran] Med 03/11/18 01:29 Active 4 mg IVPUSH Q8H PRN Remove Patch Med 03/11/18 06:28 Active 1 ea TRDERM Q72H PRN Scopolamine [Transderm-Scop] Med 03/11/18 06:24 Active 1.5 mg TRDERM Q72H PRN Sodium Chloride 0.9% [Saline Flush] Med 03/10/18 20:25 Active 10 ml FLUSH ASDIRECTED PRN Peripheral IV Insertion Adult [OM.PC] Routine Oth 03/10/18 20:24 Ordered Code Status [Resuscitation Status] Routine Resus Stat 03/11/18 01:01 Ordered Medication Orders Acetaminophen (Tylenol) 650 mg PO Q4H PRN PRN Reason: Pain/Fever Last Admin: 03/11/18 06:57 Dose: 650 mg Hydromorphone HCl (Dilaudid) 0.25 mg IVPUSH Q4H PRN PRN Reason: Pain Last Admin: 03/11/18 01:20 Dose: 0.25 mg Acyclovir 385 mg/ Sodium (Chloride) 107.7 mls @ 100 mls/hr IV Q8H KEV Lactated Ringer's (Ringers, Lactated) 1,000 mls @ 999 mls/hr IV ASDIRECTED KEV Stop: 03/12/18 02:31 Last Admin: 03/11/18 02:47 Dose: 999 mls/hr Infusion: 03/11/18 02:41 Dose: 999 mls/hr Admin: 03/11/18 01:40 Dose: 999 mls/hr Lactated Ringer's (Ringers, Lactated) 1,000 mls @ 100 mls/hr IV ASDIRECTED [facility] Last Admin: 03/11/18 03:50 Dose: 100 mls/hr Ketorolac Tromethamine (Toradol) 30 mg IVPUSH Q6H [facility] Stop: 03/13/18 00:01 Last Admin: 03/11/18 06:28 Dose: 30 mg Miscellaneous Information (Remove Patch) 1 ea TRDERM Q72H PRN PRN Reason: IF USED Ondansetron HCl (Zofran) 4 mg IVPUSH Q8H PRN PRN Reason: Nausea Last Admin: 03/11/18 01:48 Dose: 4 mg Scopolamine (Transderm-Scop) 1.5 mg TRDERM Q72H PRN PRN Reason: Nausea Last Admin: 03/11/18 06:29 Dose: 1.5 mg Sodium Chloride (Saline Flush) 10 ml FLUSH ASDIRECTED PRN PRN Reason: Keep Vein Open Last Admin: 03/10/18 20:54 Dose: 10 ml Assessment/Plan Comment:: Impression: Dysphasia, failed out patient therapy Herpes Simplex, gingivostomatitis Dehydration Plan: IVF Analgesics Acyclovir Clear Liquids Anti-emetics DVT/GI prophylaxis Case management re: DC plan (follow up, etc)
[2018-03-11] MEDS ORDERED: HYDROmorphone 0.5 MG/0.5 ML Syringe IVPUSH PRN (07:45)
[2018-03-11] MEDS: Promethazine 12.5 MG in Sodium Chloride 0.9% 50 ML IV SCH ×3 (08:46→18:45)
[2018-03-11] MEDS: SODIUM CHLORIDE 0.9% IV SCH ×2 (09:22→16:58)
[2018-03-11] MEDS: ACYCLOVIR IV SCH ×2 (09:22→16:58)
--- NOTE | 2018-03-11 11:47 | CT ---
Head CT Technique: Multiple axial sections through the brain were obtained. Intravenous contrast was not utilized. Comparison: No prior intracranial imaging is available. Findings: Ventricles along with basal cisterns and sulci over the convexities are within normal limits for the patient's age. No abnormal parenchymal densities are seen. No evidence of intracranial hemorrhage. No midline shift or mass effect is seen. Bone window settings were reviewed which show no acute calvarial abnormality. Visualized sinuses are clear. Impression: 1. Nothing acute is appreciated on noncontrast head CT study. Diagnostic code #1 I agree with preliminary report issued by [facility] ([facility] report finalized on 03/10/18, 10:31 PM Central Time)
--- NOTE | 2018-03-11 11:47 | CT ---
CT neck Technique: Multiple axial sections were obtained from above the external auditory canals inferiorly to the lung apices. Intravenous contrast was utilized. Reconstructed sagittal and coronal images were reviewed. Comparison: No prior neck imaging. Findings: Dental artifact obscures details within the parapharyngeal region. No gross abnormality is seen in this area. Mildly prominent lymph nodes noted on both sides mostly around the perivascular space. Submandibular and parotid salivary glands appear within normal limits. Paranasal sinuses are clear. Thyroid gland appears within normal limits. Enhancing vascular structures appear within normal limits. Visualized lung apices are clear. Bone window settings were reviewed which appear within normal limits for the patient's age. Uvula appears slightly thickened. Epiglottis is within normal limits. Prevertebral soft tissues are within normal limits. Impression: 1. Slight thickening of the uvula. This presumably is inflammatory in etiology. 2. Poorly seen parapharyngeal region due to dental artifact. 3. Slightly prominent lymph nodes next to the vascular space which is felt to be on an inflammatory basis. 4. No additional abnormality is appreciated on CT study of the neck. Diagnostic code #3 I agree with preliminary report issued by [facility], several additional findings as noted above. ([facility] report finalized on 03/10/18, 10:34 PM Central Time) code #2)
--- NOTE | 2018-03-11 13:19 | PCM.PN ---
<Ariela Desai - Last Filed: 03/11/18 14:36> - General Info Date of Service: 03/11/18 Admission Dx/Problem (Free Text): Admission Diagnosis/Problem Admission Diagnosis/Problem Herpesviral gingivostomatitis and pharyngotonsillitis Functional Status: Reports: Pain Controlled, Ambulating, Urinating - Review of Systems General: Reports: Fever, Weakness, Fatigue, Chills HEENT: Reports: Headaches, Sore Throat Pulmonary: Reports: No Symptoms Cardiovascular: Reports: No Symptoms Gastrointestinal: Reports: Constipation, Decreased Appetite, Difficulty Swallowing Genitourinary: Reports: No Symptoms Musculoskeletal: Reports: No Symptoms Skin: Reports: No Symptoms Neurological: Reports: No Symptoms Psychiatric: Reports: No Symptoms Systems Review Comment:: Patient states her mouth and throat are still quite painful. She is unable to eat and finds it difficult to swallow and speak normally. She is also having painful lymphadenopathy of her neck, headaches, fever, chills, weakness, and fatigue. - Patient Data Vitals - Most Recent: Last Vital Signs Temp 98.2 F 03/11/18 08:41 Pulse 68 03/11/18 08:41 Resp 20 03/11/18 08:41 BP 137/78 03/11/18 08:41 Pulse Ox 96 03/11/18 08:41 Weight - Most Recent: 76.929 kg I&O - Last 24 Hours: Intake & Output 03/10/18 03/11/18 03/11/18 22:59 06:59 14:59 Intake Total 2430 Output Total 400 Balance 2030 Lab Results Last 24 Hours: Laboratory Results - last 24 hr 03/10/18 03/10/18 03/10/18 Range/Units 20:50 20:50 20:50 WBC 6.93 (3.98-10.04) K/mm3 RBC 5.05 (3.98-5.22) M/mm3 Hgb 14.7 (11.2-15.7) gm/L Hct 43.1 (34.1-44.9) % MCV 85.3 (79.4-94.8) fl MCH 29.1 (25.6-32.2) pg MCHC 34.1 (32.2-35.5) g/dl RDW Std Deviation 40.4 (36.4-46.3) fL Plt Count 167 L (182-369) K/mm3 MPV 9.9 (9.4-12.3) fl Neut % (Auto) (34.0-71.1) % Lymph % (Auto) (19.3-51.7) % [place] % (Auto) (4.7-12.5) % Eos % (Auto) (0.7-5.8) Baso % (Auto) (0.1-1.2) % Neut # (Auto) (1.56-6.13) K/mm3 Lymph # (Auto) (1.18-3.74) K/mm3 [place] # (Auto) (0.24-0.36) K/mm3 Eos # (Auto) (0.04-0.36) K/mm3 Baso # (Auto) (0.01-0.08) K/mm3 Neutrophils % (Manual) 51 (40-60) % Band Neutrophils % 0 (0-10) % Lymphocytes % (Manual) 37 (20-40) % Atypical Lymphs % 0 % Monocytes % (Manual) 12 H (2-10) % Eosinophils % (Manual) 0 L (0.7-5.8) % Basophils % (Manual) 0 L (0.1-1.2) Manual Slide Review Platelet Estimate Adequate Plt Morphology Comment Normal RBC Morph Comment Normal Sodium 140 (136-145) mEq/L Potassium 3.7 (3.5-5.1) mEq/L Chloride 104 (98-107) mEq/L Carbon Dioxide 28 (21-32) mEq/L Anion Gap 11.7 (5-15) BUN 9 (7-18) mg/dL Creatinine 1.0 (0.55-1.02) mg/dL Est Cr Clr Drug Dosing TNP Estimated GFR (MDRD) > 60 (>60) mL/min BUN/Creatinine Ratio 9.0 L (14-18) Glucose 93 (74-106) mg/dL Lactic Acid (0.4-2.0) mmol/L Calcium 9.1 (8.5-10.1) mg/dL Total Bilirubin 0.5 (0.2-1.0) mg/dL AST 19 (15-37) U/L ALT 17 (14-59) U/L Alkaline Phosphatase 28 L (46-116) U/L C-Reactive Protein 3.4 H* (<1.0) mg/dL Total Protein 7.0 (6.4-8.2) g/dl Albumin 3.6 (3.4-5.0) g/dl Globulin 3.4 gm/dL Albumin/Globulin Ratio 1.1 (1-2) Monoscreen Negative (NEGATIVE) HIV-1 Ab Rapid Screen (NEGATIVE) 03/10/18 03/11/18 03/11/18 Range/Units 20:50 06:15 06:15 WBC 5.26 (3.98-10.04) K/mm3 RBC 4.65 (3.98-5.22) M/mm3 Hgb 13.6 (11.2-15.7) gm/L Hct 40.3 (34.1-44.9) % MCV 86.7 (79.4-94.8) fl MCH 29.2 (25.6-32.2) pg MCHC 33.7 (32.2-35.5) g/dl RDW Std Deviation 40.6 (36.4-46.3) fL Plt Count 161 L (182-369) K/mm3 MPV 10.1 (9.4-12.3) fl Neut % (Auto) 50.1 (34.0-71.1) % Lymph % (Auto) 34.8 (19.3-51.7) % [place] % (Auto) 13.7 H (4.7-12.5) % Eos % (Auto) 0.8 (0.7-5.8) Baso % (Auto) 0.4 (0.1-1.2) % Neut # (Auto) 2.64 (1.56-6.13) K/mm3 Lymph # (Auto) 1.83 (1.18-3.74) K/mm3 [place] # (Auto) 0.72 H (0.24-0.36) K/mm3 Eos # (Auto) 0.04 (0.04-0.36) K/mm3 Baso # (Auto) 0.02 (0.01-0.08) K/mm3 Neutrophils % (Manual) (40-60) % Band Neutrophils % (0-10) % Lymphocytes % (Manual) (20-40) % Atypical Lymphs % % Monocytes % (Manual) (2-10) % Eosinophils % (Manual) (0.7-5.8) % Basophils % (Manual) (0.1-1.2) Manual Slide Review Normal smear Platelet Estimate Plt Morphology Comment RBC Morph Comment Sodium 142 (136-145) mEq/L Potassium 3.8 (3.5-5.1) mEq/L Chloride 107 (98-107) mEq/L Carbon Dioxide 29 (21-32) mEq/L Anion Gap 9.8 (5-15) BUN 7 (7-18) mg/dL Creatinine 0.8 (0.55-1.02) mg/dL Est Cr Clr Drug Dosing 96.06 Estimated GFR (MDRD) > 60 (>60) mL/min BUN/Creatinine Ratio 8.8 L (14-18) Glucose 83 (74-106) mg/dL Lactic Acid (0.4-2.0) mmol/L Calcium 8.8 (8.5-10.1) mg/dL Total Bilirubin (0.2-1.0) mg/dL AST (15-37) U/L ALT (14-59) U/L Alkaline Phosphatase (46-116) U/L C-Reactive Protein 2.9 H* (<1.0) mg/dL Total Protein (6.4-8.2) g/dl Albumin (3.4-5.0) g/dl Globulin gm/dL Albumin/Globulin Ratio (1-2) Monoscreen (NEGATIVE) HIV-1 Ab Rapid Screen Negative (NEGATIVE) 03/11/18 Range/Units 06:15 WBC (3.98-10.04) K/mm3 RBC (3.98-5.22) M/mm3 Hgb (11.2-15.7) gm/L Hct (34.1-44.9) % MCV (79.4-94.8) fl MCH (25.6-32.2) pg MCHC (32.2-35.5) g/dl RDW Std Deviation (36.4-46.3) fL Plt Count (182-369) K/mm3 MPV (9.4-12.3) fl Neut % (Auto) (34.0-71.1) % Lymph % (Auto) (19.3-51.7) % [place] % (Auto) (4.7-12.5) % Eos % (Auto) (0.7-5.8) Baso % (Auto) (0.1-1.2) % Neut # (Auto) (1.56-6.13) K/mm3 Lymph # (Auto) (1.18-3.74) K/mm3 [place] # (Auto) (0.24-0.36) K/mm3 Eos # (Auto) (0.04-0.36) K/mm3 Baso # (Auto) (0.01-0.08) K/mm3 Neutrophils % (Manual) (40-60) % Band Neutrophils % (0-10) % Lymphocytes % (Manual) (20-40) % Atypical Lymphs % % Monocytes % (Manual) (2-10) % Eosinophils % (Manual) (0.7-5.8) % Basophils % (Manual) (0.1-1.2) Manual Slide Review Platelet Estimate Plt Morphology Comment RBC Morph Comment Sodium (136-145) mEq/L Potassium (3.5-5.1) mEq/L Chloride (98-107) mEq/L Carbon Dioxide (21-32) mEq/L Anion Gap (5-15) BUN (7-18) mg/dL Creatinine (0.55-1.02) mg/dL Est Cr Clr Drug Dosing Estimated GFR (MDRD) (>60) mL/min BUN/Creatinine Ratio (14-18) Glucose (74-106) mg/dL Lactic Acid 0.5 (0.4-2.0) mmol/L Calcium (8.5-10.1) mg/dL Total Bilirubin (0.2-1.0) mg/dL AST (15-37) U/L ALT (14-59) U/L Alkaline Phosphatase (46-116) U/L C-Reactive Protein (<1.0) mg/dL Total Protein (6.4-8.2) g/dl Albumin (3.4-5.0) g/dl Globulin gm/dL Albumin/Globulin Ratio (1-2) Monoscreen (NEGATIVE) HIV-1 Ab Rapid Screen (NEGATIVE) Med Orders - Current: Current Medications Acetaminophen (Tylenol) 650 mg PO Q6H PRN PRN Reason: Pain/Fever Hydromorphone HCl (Dilaudid) 0.25 mg IVPUSH Q4H PRN PRN Reason: Pain Acyclovir 385 mg/ Sodium (Chloride) 107.7 mls @ 100 mls/hr IV Q8H [facility] Last Admin: 03/11/18 09:22 Dose: 100 mls/hr Lactated Ringer's (Ringers, Lactated) 1,000 mls @ 100 mls/hr IV ASDIRECTED K[facility] Last Admin: 03/11/18 03:50 Dose: 100 mls/hr Promethazine HCl 12.5 mg/ (Sodium Chloride) 50.5 mls @ 100 mls/hr IV Q6H [facility] Last Admin: 03/11/18 08:46 Dose: 100 mls/hr Ketorolac Tromethamine (Toradol) 30 mg IVPUSH Q6H [facility] Stop: 03/13/18 00:01 Last Admin: 03/11/18 11:49 Dose: 30 mg Miscellaneous Information (Remove Patch) 1 ea TRDERM Q72H PRN PRN Reason: IF USED Ondansetron HCl (Zofran) 4 mg IVPUSH Q8H PRN PRN Reason: Nausea Last Admin: 03/11/18 01:48 Dose: 4 mg Scopolamine (Transderm-Scop) 1.5 mg TRDERM Q72H PRN PRN Reason: Nausea Last Admin: 03/11/18 06:29 Dose: 1.5 mg Sodium Chloride (Saline Flush) 10 ml FLUSH ASDIRECTED PRN PRN Reason: Keep Vein Open Last Admin: 03/10/18 20:54 Dose: 10 ml Discontinued Medications Acetaminophen (Tylenol) 650 mg PO Q4H PRN PRN Reason: Pain/Fever Last Admin: 03/11/18 06:57 Dose: 650 mg Hydromorphone HCl (Dilaudid) 0.5 mg IVPUSH ONETIME ONE Stop: 03/10/18 20:26 Last Admin: 03/10/18 20:55 Dose: 0.5 mg Hydromorphone HCl (Dilaudid) 0.5 mg IVPUSH ONETIME ONE Stop: 03/10/18 22:35 Last Admin: 03/10/18 23:05 Dose: 0.5 mg Hydromorphone HCl (Dilaudid) 0.25 mg IVPUSH Q4H PRN PRN Reason: Pain Last Admin: 03/11/18 01:20 Dose: 0.25 mg Sodium Chloride (Normal Saline) 1,000 mls @ 999 mls/hr IV ONETIME ONE Stop: 03/10/18 21:24 Last Admin: 03/10/18 20:54 Dose: 999 mls/hr Sodium Chloride (Normal Saline) 1,000 mls @ 125 mls/hr IV ONETIME ONE Stop: 03/11/18 06:38 Last Admin: 03/10/18 23:06 Dose: 125 mls/hr Acyclovir 400 mg/ Sodium (Chloride) 108 mls @ 100 mls/hr IV NOW STA Stop: 03/11/18 00:30 Last Admin: 03/10/18 23:50 Dose: 100 mls/hr Lactated Ringer's (Ringers, Lactated) 1,000 mls @ 999 mls/hr IV ASDIRECTED [facility] Stop: 03/12/18 02:31 Last Admin: 03/11/18 02:47 Dose: 999 mls/hr Iopamidol (Isovue-300 (61%)) 80 ml IVPUSH ONETIME ONE Stop: 03/11/18 00:16 Last Admin: 03/11/18 00:16 Dose: 80 ml Ketorolac Tromethamine (Toradol) 30 mg IVPUSH ONETIME ONE Stop: 03/10/18 20:26 Last Admin: 03/10/18 20:58 Dose: 30 mg Ketorolac Tromethamine (Toradol) 30 mg IM ONETIME ONE Stop: 03/10/18 23:27 Last Admin: 03/10/18 23:50 Dose: 30 mg Lorazepam (Ativan) 0.25 mg IVPUSH ONETIME ONE Stop: 03/11/18 00:56 Last Admin: 03/11/18 01:22 Dose: 0.25 mg - Exam General: Alert, Oriented, Cooperative HEENT: Pupils Equal, Pupils Reactive, EOMI, Mucous Membr. Moist/[place] Neck: Supple, Lymphadenopathy Lungs: Clear to Auscultation, Normal Respiratory Effort Cardiovascular: Regular Rate, Regular Rhythm GI/Abdominal Exam: Normal Bowel Sounds, Soft, Non-Tender, Other (stomatitis) (Female) Exam: Deferred Extremities: Normal Inspection, Normal Range of Motion, Non-Tender, No Pedal Edema Peripheral Pulses: 2+: Radial (L), Radial (R), Posterior Tibial (L), Posterior Tibial (R) Skin: Warm, Dry, Intact Neurological: No New Focal Deficit Psy/Mental Status: Alert, Normal Affect, Normal Mood Physical Findings Comments:: Patient is cooperative and pleasant. Stomatitis and lymphadenopathy noted upon exam. No other abnormalities found. - Problem List & Annotations (1) Primary herpes simplex with gingivostomatitis SNOMED Code(s): 63782465 Code(s): B00.2 - HERPESVIRAL GINGIVOSTOMATITIS AND PHARYNGOTONSILLITIS Status: Acute Current Visit: Yes - Problem List Review Problem List Initiated/Reviewed/Updated: Yes - Plan Plan:: Herpes Simplex, gingivostomatitis * Consistent with clinical presentation * Stomatitis, dysphagia, painful lymphadenopathy * Management * Analgesics * Acyclovir * Mouthwash * Chloraseptic spray * Advance diet as tolerated Dysphagia * 2/2 to stomatitis * Failed outpatient therapy * Advance diet as tolerated Dehydration * 2/2 to stomatitis, dysphagia * IVF Anti-emetics DVT/GI prophylaxis Case management re: DC plan (follow up, etc) Ariela Desai, MS-3. Dr. Benitez has examined the patient and reviewed the note. <Conrado Benitez T - Last Filed: 03/11/18 17:53> - Patient Data Vitals - Most Recent: Last Vital Signs Temp 37.0 C 03/11/18 14:23 Pulse 55 L 03/11/18 14:23 Resp 20 03/11/18 14:23 BP 130/67 03/11/18 14:23 Pulse Ox 97 03/11/18 14:23 I&O - Last 24 Hours: Intake & Output 03/11/18 03/11/18 03/11/18 06:59 14:59 22:59 Intake Total 2430 200 200 Output Total 400 Balance 2030 200 200 Lab Results Last 24 Hours: Laboratory Results - last 24 hr 03/10/18 03/10/18 03/10/18 Range/Units 20:50 20:50 20:50 WBC 6.93 (3.98-10.04) K/mm3 RBC 5.05 (3.98-5.22) M/mm3 Hgb 14.7 (11.2-15.7) gm/L Hct 43.1 (34.1-44.9) % MCV 85.3 (79.4-94.8) fl MCH 29.1 (25.6-32.2) pg MCHC 34.1 (32.2-35.5) g/dl RDW Std Deviation 40.4 (36.4-46.3) fL Plt Count 167 L (182-369) K/mm3 MPV 9.9 (9.4-12.3) fl Neut % (Auto) (34.0-71.1) % Lymph % (Auto) (19.3-51.7) % [place] % (Auto) (4.7-12.5) % Eos % (Auto) (0.7-5.8) Baso % (Auto) (0.1-1.2) % Neut # (Auto) (1.56-6.13) K/mm3 Lymph # (Auto) (1.18-3.74) K/mm3 [place] # (Auto) (0.24-0.36) K/mm3 Eos # (Auto) (0.04-0.36) K/mm3 Baso # (Auto) (0.01-0.08) K/mm3 Neutrophils % (Manual) 51 (40-60) % Band Neutrophils % 0 (0-10) % Lymphocytes % (Manual) 37 (20-40) % Atypical Lymphs % 0 % Monocytes % (Manual) 12 H (2-10) % Eosinophils % (Manual) 0 L (0.7-5.8) % Basophils % (Manual) 0 L (0.1-1.2) Manual Slide Review Platelet Estimate Adequate Plt Morphology Comment Normal RBC Morph Comment Normal Sodium 140 (136-145) mEq/L Potassium 3.7 (3.5-5.1) mEq/L Chloride 104 (98-107) mEq/L Carbon Dioxide 28 (21-32) mEq/L Anion Gap 11.7 (5-15) BUN 9 (7-18) mg/dL Creatinine 1.0 (0.55-1.02) mg/dL Est Cr Clr Drug Dosing TNP Estimated GFR (MDRD) > 60 (>60) mL/min BUN/Creatinine Ratio 9.0 L (14-18) Glucose 93 (74-106) mg/dL Lactic Acid (0.4-2.0) mmol/L Calcium 9.1 (8.5-10.1) mg/dL Total Bilirubin 0.5 (0.2-1.0) mg/dL AST 19 (15-37) U/L ALT 17 (14-59) U/L Alkaline Phosphatase 28 L (46-116) U/L C-Reactive Protein 3.4 H* (<1.0) mg/dL Total Protein 7.0 (6.4-8.2) g/dl Albumin 3.6 (3.4-5.0) g/dl Globulin 3.4 gm/dL Albumin/Globulin Ratio 1.1 (1-2) Monoscreen Negative (NEGATIVE) HIV-1 Ab Rapid Screen (NEGATIVE) 03/10/18 03/11/18 03/11/18 Range/Units 20:50 06:15 06:15 WBC 5.26 (3.98-10.04) K/mm3 RBC 4.65 (3.98-5.22) M/mm3 Hgb 13.6 (11.2-15.7) gm/L Hct 40.3 (34.1-44.9) % MCV 86.7 (79.4-94.8) fl MCH 29.2 (25.6-32.2) pg MCHC 33.7 (32.2-35.5) g/dl RDW Std Deviation 40.6 (36.4-46.3) fL Plt Count 161 L (182-369) K/mm3 MPV 10.1 (9.4-12.3) fl Neut % (Auto) 50.1 (34.0-71.1) % Lymph % (Auto) 34.8 (19.3-51.7) % [place] % (Auto) 13.7 H (4.7-12.5) % Eos % (Auto) 0.8 (0.7-5.8) Baso % (Auto) 0.4 (0.1-1.2) % Neut # (Auto) 2.64 (1.56-6.13) K/mm3 Lymph # (Auto) 1.83 (1.18-3.74) K/mm3 [place] # (Auto) 0.72 H (0.24-0.36) K/mm3 Eos # (Auto) 0.04 (0.04-0.36) K/mm3 Baso # (Auto) 0.02 (0.01-0.08) K/mm3 Neutrophils % (Manual) (40-60) % Band Neutrophils % (0-10) % Lymphocytes % (Manual) (20-40) % Atypical Lymphs % % Monocytes % (Manual) (2-10) % Eosinophils % (Manual) (0.7-5.8) % Basophils % (Manual) (0.1-1.2) Manual Slide Review Normal smear Platelet Estimate Plt Morphology Comment RBC Morph Comment Sodium 142 (136-145) mEq/L Potassium 3.8 (3.5-5.1) mEq/L Chloride 107 (98-107) mEq/L Carbon Dioxide 29 (21-32) mEq/L Anion Gap 9.8 (5-15) BUN 7 (7-18) mg/dL Creatinine 0.8 (0.55-1.02) mg/dL Est Cr Clr Drug Dosing 96.06 Estimated GFR (MDRD) > 60 (>60) mL/min BUN/Creatinine Ratio 8.8 L (14-18) Glucose 83 (74-106) mg/dL Lactic Acid (0.4-2.0) mmol/L Calcium 8.8 (8.5-10.1) mg/dL Total Bilirubin (0.2-1.0) mg/dL AST (15-37) U/L ALT (14-59) U/L Alkaline Phosphatase (46-116) U/L C-Reactive Protein 2.9 H* (<1.0) mg/dL Total Protein (6.4-8.2) g/dl Albumin (3.4-5.0) g/dl Globulin gm/dL Albumin/Globulin Ratio (1-2) Monoscreen (NEGATIVE) HIV-1 Ab Rapid Screen Negative (NEGATIVE) 03/11/18 Range/Units 06:15 WBC (3.98-10.04) K/mm3 RBC (3.98-5.22) M/mm3 Hgb (11.2-15.7) gm/L Hct (34.1-44.9) % MCV (79.4-94.8) fl MCH (25.6-32.2) pg MCHC (32.2-35.5) g/dl RDW Std Deviation (36.4-46.3) fL Plt Count (182-369) K/mm3 MPV (9.4-12.3) fl Neut % (Auto) (34.0-71.1) % Lymph % (Auto) (19.3-51.7) % [place] % (Auto) (4.7-12.5) % Eos % (Auto) (0.7-5.8) Baso % (Auto) (0.1-1.2) % Neut # (Auto) (1.56-6.13) K/mm3 Lymph # (Auto) (1.18-3.74) K/mm3 [place] # (Auto) (0.24-0.36) K/mm3 Eos # (Auto) (0.04-0.36) K/mm3 Baso # (Auto) (0.01-0.08) K/mm3 Neutrophils % (Manual) (40-60) % Band Neutrophils % (0-10) % Lymphocytes % (Manual) (20-40) % Atypical Lymphs % % Monocytes % (Manual) (2-10) % Eosinophils % (Manual) (0.7-5.8) % Basophils % (Manual) (0.1-1.2) Manual Slide Review Platelet Estimate Plt Morphology Comment RBC Morph Comment Sodium (136-145) mEq/L Potassium (3.5-5.1) mEq/L Chloride (98-107) mEq/L Carbon Dioxide (21-32) mEq/L Anion Gap (5-15) BUN (7-18) mg/dL Creatinine (0.55-1.02) mg/dL Est Cr Clr Drug Dosing Estimated GFR (MDRD) (>60) mL/min BUN/Creatinine Ratio (14-18) Glucose (74-106) mg/dL Lactic Acid 0.5 (0.4-2.0) mmol/L Calcium (8.5-10.1) mg/dL Total Bilirubin (0.2-1.0) mg/dL AST (15-37) U/L ALT (14-59) U/L Alkaline Phosphatase (46-116) U/L C-Reactive Protein (<1.0) mg/dL Total Protein (6.4-8.2) g/dl Albumin (3.4-5.0) g/dl Globulin gm/dL Albumin/Globulin Ratio (1-2) Monoscreen (NEGATIVE) HIV-1 Ab Rapid Screen (NEGATIVE) Med Orders - Current: Current Medications Acetaminophen (Tylenol) 650 mg PO Q6H PRN PRN Reason: Pain/Fever Al Hydroxide/Mg Hydroxide 30 (ml/ Lidocaine HCl 15 ml) 0 ml PO Q8HR@0700,1400, 2100 [facility] Last Admin: 03/11/18 14:18 Dose: 45 ml Hydromorphone HCl (Dilaudid) 0.25 mg IVPUSH Q4H PRN PRN Reason: Pain Acyclovir 385 mg/ Sodium (Chloride) 107.7 mls @ 100 mls/hr IV Q8H [facility] Last Admin: 03/11/18 16:58 Dose: 100 mls/hr Lactated Ringer's (Ringers, Lactated) 1,000 mls @ 100 mls/hr IV ASDIRECTED [facility] Last Admin: 03/11/18 14:28 Dose: 100 mls/hr Promethazine HCl 12.5 mg/ (Sodium Chloride) 50.5 mls @ 100 mls/hr IV Q6H [facility] Last Admin: 03/11/18 13:55 Dose: 100 mls/hr Ketorolac Tromethamine (Toradol) 30 mg IVPUSH Q6H [facility] Stop: 03/13/18 00:01 Last Admin: 03/11/18 17:03 Dose: 30 mg Miscellaneous Information (Remove Patch) 1 ea TRDERM Q72H PRN PRN Reason: IF USED Ondansetron HCl (Zofran) 4 mg IVPUSH Q8H PRN PRN Reason: Nausea Last Admin: 03/11/18 01:48 Dose: 4 mg Phenol/Menthol (Chloraseptic) 15 ml MUCMEM Q2H PRN PRN Reason: Sore Throat Last Admin: 03/11/18 16:55 Dose: 15 ml Scopolamine (Transderm-Scop) 1.5 mg TRDERM Q72H PRN PRN Reason: Nausea Last Admin: 03/11/18 06:29 Dose: 1.5 mg Sodium Chloride (Saline Flush) 10 ml FLUSH ASDIRECTED PRN PRN Reason: Keep Vein Open Last Admin: 03/10/18 20:54 Dose: 10 ml Discontinued Medications Acetaminophen (Tylenol) 650 mg PO Q4H PRN PRN Reason: Pain/Fever Last Admin: 03/11/18 06:57 Dose: 650 mg Hydromorphone HCl (Dilaudid) 0.5 mg IVPUSH ONETIME ONE Stop: 03/10/18 20:26 Last Admin: 03/10/18 20:55 Dose: 0.5 mg Hydromorphone HCl (Dilaudid) 0.5 mg IVPUSH ONETIME ONE Stop: 03/10/18 22:35 Last Admin: 03/10/18 23:05 Dose: 0.5 mg Hydromorphone HCl (Dilaudid) 0.25 mg IVPUSH Q4H PRN PRN Reason: Pain Last Admin: 03/11/18 01:20 Dose: 0.25 mg Sodium Chloride (Normal Saline) 1,000 mls @ 999 mls/hr IV ONETIME ONE Stop: 03/10/18 21:24 Last Admin: 03/10/18 20:54 Dose: 999 mls/hr Sodium Chloride (Normal Saline) 1,000 mls @ 125 mls/hr IV ONETIME ONE Stop: 03/11/18 06:38 Last Admin: 03/10/18 23:06 Dose: 125 mls/hr Acyclovir 400 mg/ Sodium (Chloride) 108 mls @ 100 mls/hr IV NOW STA Stop: 03/11/18 00:30 Last Admin: 03/10/18 23:50 Dose: 100 mls/hr Lactated Ringer's (Ringers, Lactated) 1,000 mls @ 999 mls/hr IV ASDIRECTED KEV Stop: 03/12/18 02:31 Last Admin: 03/11/18 02:47 Dose: 999 mls/hr Iopamidol (Isovue-300 (61%)) 80 ml IVPUSH ONETIME ONE Stop: 03/11/18 00:16 Last Admin: 03/11/18 00:16 Dose: 80 ml Ketorolac Tromethamine (Toradol) 30 mg IVPUSH ONETIME ONE Stop: 03/10/18 20:26 Last Admin: 03/10/18 20:58 Dose: 30 mg Ketorolac Tromethamine (Toradol) 30 mg IM ONETIME ONE Stop: 03/10/18 23:27 Last Admin: 03/10/18 23:50 Dose: 30 mg Lorazepam (Ativan) 0.25 mg IVPUSH ONETIME ONE Stop: 03/11/18 00:56 Last Admin: 03/11/18 01:22 Dose: 0.25 mg - My Orders Last 24 Hours: My Active Orders 03/11/18 13:42 Phenol [Chloraseptic] 15 ml MUCMEM Q2H PRN 03/11/18 13:47 Consult to Dietary [Consult to Construction Framer] [CONS] Routine 03/11/18 14:00 Alum Hydrox/Mag Hydrox/Simeth [Mag-Al Plus] 30 ml Lidocaine 2% [Xylocaine 2% Viscous] 15 ml PO Q8HR@0700,1400,2100 - Plan Plan:: Patient was seen and examined at bedside in concert with the medical student. The assessment and plans were discussed and agreed upon with me. Patient reports sore throat and dysphagia. Her tongue was noted for scattered and some are clustered small blisters. She is afebrile w/o leukocytosis. Will advance diet as tolerated, consult dietary, GI cocktail Q8H and PRN Chloraseptic spray, Continue Toradol and Dilaudid for pain management, continue Acyclovir for anti- viral agent and encourage to ambulate as tolerated.
[2018-03-11] MEDS: Alum Hydrox/Mag Hydrox/Simeth 30 ML, Lidocaine 2% 15 ML PO SCH ×4 (14:18→21:12)
[2018-03-11] MEDS: Phenol 1.4% Oral Spray 20 ML Bottle MUCMEM PRN (16:55)
[2018-03-11] MEDS ORDERED: Magnesium Hydroxide 400 MG/5 ML Susp 30 ML Cup PO ONE (18:12)
[2018-03-11] MEDS ORDERED: HYDROmorphone 1 MG/ML Syringe IV ONE (18:31)
[2018-03-11] MEDS ORDERED: HYDROmorphone 1 MG/ML Syringe IVPUSH ONE (20:31)
[2018-03-11] MEDS: Temazepam 15 MG Cap PO PRN (21:08)
[2018-03-12] MEDS: Ketorolac 30 MG/ML SDV IVPUSH SCH ×4 (00:49→19:41)
[2018-03-12] MEDS: SODIUM CHLORIDE 0.9% IV SCH ×3 (00:49→15:19)
[2018-03-12] MEDS: ACYCLOVIR IV SCH ×3 (00:49→15:19)
[2018-03-12] MEDS: Lactated Ringers 1,000 ML IV SCH ×3 (00:50→20:48)
[2018-03-12] MEDS: Promethazine 12.5 MG in Sodium Chloride 0.9% 50 ML IV SCH ×2 (02:03→06:46)
[2018-03-12] MEDS: Alum Hydrox/Mag Hydrox/Simeth 30 ML, Lidocaine 2% 15 ML PO SCH ×8 (05:44→20:47)
[2018-03-12] MEDS: HYDROmorphone 1 MG/ML Syringe IVPUSH PRN ×2 (05:44→15:59)
[2018-03-12] MEDS: oxyCODONE ER 10 MG TAB.ER PO SCH ×2 (09:04→20:47)
[2018-03-12] MEDS: Phenol 1.4% Oral Spray 20 ML Bottle MUCMEM PRN ×2 (09:12→15:58)
--- NOTE | 2018-03-12 11:11 | PCM.PN ---
<Ariela Desai - Last Filed: 03/12/18 11:06> - General Info Date of Service: 03/12/18 Admission Dx/Problem (Free Text): Admission Diagnosis/Problem Admission Diagnosis/Problem Herpesviral gingivostomatitis and pharyngotonsillitis Functional Status: Reports: Pain Controlled (improving) - Review of Systems General: Reports: Fatigue HEENT: Reports: Dysphasia, Sore Throat, Other (tender lymphadenopathy) Pulmonary: Reports: No Symptoms Cardiovascular: Reports: No Symptoms Gastrointestinal: Reports: Constipation, Decreased Appetite, Difficulty Swallowing, Nausea Genitourinary: Reports: No Symptoms Musculoskeletal: Reports: No Symptoms Skin: Reports: No Symptoms Neurological: Reports: No Symptoms Psychiatric: Reports: No Symptoms Systems Review Comment:: Patient reports symptoms have improved but are still present. She is still experiencing stomatitis, tender lymphadenopathy, and dysphagia. Appetite has not returned and she is finding it difficult to swallow and eat. She is still having pain but it has improved compared to the previous day. She denies fever, chills, headache, and all other symptoms today. She slept well through the night and had no issues. - Patient Data Vitals - Most Recent: Last Vital Signs Temp 98.1 F 03/12/18 07:19 Pulse 53 L 03/12/18 07:19 Resp 22 H 03/12/18 07:19 BP 128/82 03/12/18 07:19 Pulse Ox 96 03/12/18 07:19 Weight - Most Recent: 77.678 kg I&O - Last 24 Hours: Intake & Output 03/11/18 03/12/18 03/12/18 22:59 06:59 14:59 Intake Total 2295 1837 420 Balance 2295 1837 420 Lab Results Last 24 Hours: Laboratory Results - last 24 hr 03/12/18 03/12/18 03/12/18 Range/Units 06:24 06:24 06:24 WBC 6.38 (3.98-10.04) K/mm3 RBC 4.51 (3.98-5.22) M/mm3 Hgb 13.3 (11.2-15.7) gm/L Hct 38.6 (34.1-44.9) % MCV 85.6 (79.4-94.8) fl MCH 29.5 (25.6-32.2) pg MCHC 34.5 (32.2-35.5) g/dl RDW Std Deviation 38.9 (36.4-46.3) fL Plt Count 163 L (182-369) K/mm3 MPV 10.3 (9.4-12.3) fl Neut % (Auto) 48.7 (34.0-71.1) % Lymph % (Auto) 37.1 (19.3-51.7) % [place] % (Auto) 12.1 (4.7-12.5) % Eos % (Auto) 1.3 (0.7-5.8) Baso % (Auto) 0.6 (0.1-1.2) % Neut # (Auto) 3.11 (1.56-6.13) K/mm3 Lymph # (Auto) 2.37 (1.18-3.74) K/mm3 [place] # (Auto) 0.77 H (0.24-0.36) K/mm3 Eos # (Auto) 0.08 (0.04-0.36) K/mm3 Baso # (Auto) 0.04 (0.01-0.08) K/mm3 Manual Slide Review Normal smear Sodium 143 (136-145) mEq/L Potassium 3.7 (3.5-5.1) mEq/L Chloride 108 H (98-107) mEq/L Carbon Dioxide 28 (21-32) mEq/L Anion Gap 10.7 (5-15) BUN 7 (7-18) mg/dL Creatinine 0.9 (0.55-1.02) mg/dL Est Cr Clr Drug Dosing 85.38 mL/min Estimated GFR (MDRD) > 60 (>60) mL/min BUN/Creatinine Ratio 7.8 L (14-18) Glucose 78 (74-106) mg/dL Lactic Acid 0.4 (0.4-2.0) mmol/L Calcium 8.8 (8.5-10.1) mg/dL Magnesium (1.8-2.4) mg/dl C-Reactive Protein 1.9 H* (<1.0) mg/dL 03/12/18 Range/Units 06:24 WBC (3.98-10.04) K/mm3 RBC (3.98-5.22) M/mm3 Hgb (11.2-15.7) gm/L Hct (34.1-44.9) % MCV (79.4-94.8) fl MCH (25.6-32.2) pg MCHC (32.2-35.5) g/dl RDW Std Deviation (36.4-46.3) fL Plt Count (182-369) K/mm3 MPV (9.4-12.3) fl Neut % (Auto) (34.0-71.1) % Lymph % (Auto) (19.3-51.7) % [place] % (Auto) (4.7-12.5) % Eos % (Auto) (0.7-5.8) Baso % (Auto) (0.1-1.2) % Neut # (Auto) (1.56-6.13) K/mm3 Lymph # (Auto) (1.18-3.74) K/mm3 [place] # (Auto) (0.24-0.36) K/mm3 Eos # (Auto) (0.04-0.36) K/mm3 Baso # (Auto) (0.01-0.08) K/mm3 Manual Slide Review Sodium (136-145) mEq/L Potassium (3.5-5.1) mEq/L Chloride (98-107) mEq/L Carbon Dioxide (21-32) mEq/L Anion Gap (5-15) BUN (7-18) mg/dL Creatinine (0.55-1.02) mg/dL Est Cr Clr Drug Dosing mL/min Estimated GFR (MDRD) (>60) mL/min BUN/Creatinine Ratio (14-18) Glucose (74-106) mg/dL Lactic Acid (0.4-2.0) mmol/L Calcium (8.5-10.1) mg/dL Magnesium 1.9 (1.8-2.4) mg/dl C-Reactive Protein (<1.0) mg/dL Med Orders - Current: Current Medications Acetaminophen (Tylenol) 650 mg PO Q6H PRN PRN Reason: Pain/Fever Al Hydroxide/Mg Hydroxide 30 (ml/ Lidocaine HCl 15 ml) 0 ml PO Q8HR@0700,1400, 2100 [facility] Last Admin: 03/12/18 06:44 Dose: Not Given Hydromorphone HCl (Dilaudid) 1 mg IVPUSH Q6H PRN PRN Reason: Pain Last Admin: 03/12/18 05:44 Dose: 1 mg Acyclovir 385 mg/ Sodium (Chloride) 107.7 mls @ 100 mls/hr IV Q8H [facility] Last Admin: 03/12/18 09:00 Dose: 100 mls/hr Lactated Ringer's (Ringers, Lactated) 1,000 mls @ 100 mls/hr IV ASDIRECTED [facility] Last Admin: 03/12/18 00:50 Dose: 100 mls/hr Promethazine HCl 12.5 mg/ (Sodium Chloride) 50.5 mls @ 100 mls/hr IV Q6H PRN PRN Reason: NAUSEA/VOMITING Ketorolac Tromethamine (Toradol) 30 mg IVPUSH Q6H [facility] Stop: 03/13/18 00:01 Last Admin: 03/12/18 05:43 Dose: 30 mg Miscellaneous Information (Remove Patch) 1 ea TRDERM Q72H PRN PRN Reason: IF USED Ondansetron HCl (Zofran) 4 mg IVPUSH Q8H PRN PRN Reason: Nausea Last Admin: 03/11/18 01:48 Dose: 4 mg Oxycodone HCl (Oxycontin) 10 mg PO Q12H [facility] Last Admin: 03/12/18 09:04 Dose: 10 mg Phenol/Menthol (Chloraseptic) 15 ml MUCMEM Q2H PRN PRN Reason: Sore Throat Last Admin: 03/12/18 09:12 Dose: 15 ml Scopolamine (Transderm-Scop) 1.5 mg TRDERM Q72H PRN PRN Reason: Nausea Last Admin: 03/11/18 06:29 Dose: 1.5 mg Sodium Chloride (Saline Flush) 10 ml FLUSH ASDIRECTED PRN PRN Reason: Keep Vein Open Last Admin: 03/10/18 20:54 Dose: 10 ml Temazepam (Restoril) 15 mg PO BEDTIME PRN PRN Reason: Sleep Last Admin: 03/11/18 21:08 Dose: 15 mg Discontinued Medications Acetaminophen (Tylenol) 650 mg PO Q4H PRN PRN Reason: Pain/Fever Last Admin: 03/11/18 06:57 Dose: 650 mg Hydromorphone HCl (Dilaudid) 0.5 mg IVPUSH ONETIME ONE Stop: 03/10/18 20:26 Last Admin: 03/10/18 20:55 Dose: 0.5 mg Hydromorphone HCl (Dilaudid) 0.5 mg IVPUSH ONETIME ONE Stop: 03/10/18 22:35 Last Admin: 03/10/18 23:05 Dose: 0.5 mg Hydromorphone HCl (Dilaudid) 0.25 mg IVPUSH Q4H PRN PRN Reason: Pain Last Admin: 03/11/18 01:20 Dose: 0.25 mg Hydromorphone HCl (Dilaudid) 0.25 mg IVPUSH Q4H PRN PRN Reason: Pain Hydromorphone HCl (Dilaudid) 1 mg IV ONETIME ONE Stop: 03/11/18 18:32 Last Admin: 03/11/18 18:39 Dose: 1 mg Hydromorphone HCl (Dilaudid) 1 mg IVPUSH ONETIME ONE Stop: 03/11/18 20:32 Last Admin: 03/11/18 21:08 Dose: 1 mg Sodium Chloride (Normal Saline) 1,000 mls @ 999 mls/hr IV ONETIME ONE Stop: 03/10/18 21:24 Last Admin: 03/10/18 20:54 Dose: 999 mls/hr Sodium Chloride (Normal Saline) 1,000 mls @ 125 mls/hr IV ONETIME ONE Stop: 03/11/18 06:38 Last Admin: 03/10/18 23:06 Dose: 125 mls/hr Acyclovir 400 mg/ Sodium (Chloride) 108 mls @ 100 mls/hr IV NOW STA Stop: 03/11/18 00:30 Last Admin: 03/10/18 23:50 Dose: 100 mls/hr Lactated Ringer's (Ringers, Lactated) 1,000 mls @ 999 mls/hr IV ASDIRECTED [facility] Stop: 03/12/18 02:31 Last Admin: 03/11/18 02:47 Dose: 999 mls/hr Promethazine HCl 12.5 mg/ (Sodium Chloride) 50.5 mls @ 100 mls/hr IV Q6H [facility] Last Admin: 03/12/18 06:46 Dose: 100 mls/hr Iopamidol (Isovue-300 (61%)) 80 ml IVPUSH ONETIME ONE Stop: 03/11/18 00:16 Last Admin: 03/11/18 00:16 Dose: 80 ml Ketorolac Tromethamine (Toradol) 30 mg IVPUSH ONETIME ONE Stop: 03/10/18 20:26 Last Admin: 03/10/18 20:58 Dose: 30 mg Ketorolac Tromethamine (Toradol) 30 mg IM ONETIME ONE Stop: 03/10/18 23:27 Last Admin: 03/10/18 23:50 Dose: 30 mg Lorazepam (Ativan) 0.25 mg IVPUSH ONETIME ONE Stop: 03/11/18 00:56 Last Admin: 03/11/18 01:22 Dose: 0.25 mg Magnesium Hydroxide (Milk Of Magnesia) 30 ml PO ONETIME ONE Stop: 03/11/18 18:13 Last Admin: 03/11/18 18:57 Dose: 30 ml - Exam General: Alert, Oriented, Cooperative HEENT: Pupils Equal, Pupils Reactive, EOMI, Mucous Membr. Moist/[place] Neck: Lymphadenopathy Lungs: Clear to Auscultation, Normal Respiratory Effort Cardiovascular: Regular Rate, Regular Rhythm GI/Abdominal Exam: Soft, Non-Tender, Other (stomatitis; vesicles) (Female) Exam: Deferred Back Exam: Normal Inspection, Full Range of Motion Extremities: Normal Inspection, Normal Range of Motion, Non-Tender, No Pedal Edema Peripheral Pulses: 2+: Radial (L), Radial (R), Posterior Tibial (L), Posterior Tibial (R) Skin: Warm, Dry, Intact Neurological: No New Focal Deficit Psy/Mental Status: Alert, Normal Affect, Normal Mood Physical Findings Comments:: Patient appears to be more comfortable today. She is pleasant and cooperative. Tender lymphadenopathy and stomatitis are noted upon exam. There are vesicles present on her tongue and palate. No other abnormalities found upon exam. - Problem List & Annotations (1) Primary herpes simplex with gingivostomatitis SNOMED Code(s): 81190175 Code(s): B00.2 - HERPESVIRAL GINGIVOSTOMATITIS AND PHARYNGOTONSILLITIS Status: Acute Current Visit: Yes - Problem List Review Problem List Initiated/Reviewed/Updated: Yes - Plan Plan:: Herpes Simplex, gingivostomatitis * Consistent with clinical presentation * Stomatitis, dysphagia, painful lymphadenopathy * Clustered vesicles on tongue, palate * Afebrile w/o leukocytosis * Management * IVF for hydration * Analgesics - toradol, dilaudid * Anti-viral treatment - acyclovir * Mouthwash * Chloraseptic spray prn * GI cocktail Q8H * Anti-emetics prn * Advance diet as tolerated - consult dietary * Ambulate as tolerated Ariela Lloyd, MS-3. Dr. Benitez has examined the patient and reviewed the note. <Conrado Benitez T - Last Filed: 03/12/18 11:48> - Patient Data Vitals - Most Recent: Last Vital Signs Temp 36.7 C 03/12/18 07:19 Pulse 53 L 03/12/18 07:19 Resp 22 H 03/12/18 07:19 BP 128/82 03/12/18 07:19 Pulse Ox 96 03/12/18 07:19 I&O - Last 24 Hours: Intake & Output 03/11/18 03/12/18 03/12/18 22:59 06:59 14:59 Intake Total 2295 1837 420 Balance 2295 1837 420 Lab Results Last 24 Hours: Laboratory Results - last 24 hr 03/12/18 03/12/18 03/12/18 Range/Units 06:24 06:24 06:24 WBC 6.38 (3.98-10.04) K/mm3 RBC 4.51 (3.98-5.22) M/mm3 Hgb 13.3 (11.2-15.7) gm/L Hct 38.6 (34.1-44.9) % MCV 85.6 (79.4-94.8) fl MCH 29.5 (25.6-32.2) pg MCHC 34.5 (32.2-35.5) g/dl RDW Std Deviation 38.9 (36.4-46.3) fL Plt Count 163 L (182-369) K/mm3 MPV 10.3 (9.4-12.3) fl Neut % (Auto) 48.7 (34.0-71.1) % Lymph % (Auto) 37.1 (19.3-51.7) % [place] % (Auto) 12.1 (4.7-12.5) % Eos % (Auto) 1.3 (0.7-5.8) Baso % (Auto) 0.6 (0.1-1.2) % Neut # (Auto) 3.11 (1.56-6.13) K/mm3 Lymph # (Auto) 2.37 (1.18-3.74) K/mm3 [place] # (Auto) 0.77 H (0.24-0.36) K/mm3 Eos # (Auto) 0.08 (0.04-0.36) K/mm3 Baso # (Auto) 0.04 (0.01-0.08) K/mm3 Manual Slide Review Normal smear Sodium 143 (136-145) mEq/L Potassium 3.7 (3.5-5.1) mEq/L Chloride 108 H (98-107) mEq/L Carbon Dioxide 28 (21-32) mEq/L Anion Gap 10.7 (5-15) BUN 7 (7-18) mg/dL Creatinine 0.9 (0.55-1.02) mg/dL Est Cr Clr Drug Dosing 85.38 mL/min Estimated GFR (MDRD) > 60 (>60) mL/min BUN/Creatinine Ratio 7.8 L (14-18) Glucose 78 (74-106) mg/dL Lactic Acid 0.4 (0.4-2.0) mmol/L Calcium 8.8 (8.5-10.1) mg/dL Magnesium (1.8-2.4) mg/dl C-Reactive Protein 1.9 H* (<1.0) mg/dL 03/12/18 Range/Units 06:24 WBC (3.98-10.04) K/mm3 RBC (3.98-5.22) M/mm3 Hgb (11.2-15.7) gm/L Hct (34.1-44.9) % MCV (79.4-94.8) fl MCH (25.6-32.2) pg MCHC (32.2-35.5) g/dl RDW Std Deviation (36.4-46.3) fL Plt Count (182-369) K/mm3 MPV (9.4-12.3) fl Neut % (Auto) (34.0-71.1) % Lymph % (Auto) (19.3-51.7) % [place] % (Auto) (4.7-12.5) % Eos % (Auto) (0.7-5.8) Baso % (Auto) (0.1-1.2) % Neut # (Auto) (1.56-6.13) K/mm3 Lymph # (Auto) (1.18-3.74) K/mm3 [place] # (Auto) (0.24-0.36) K/mm3 Eos # (Auto) (0.04-0.36) K/mm3 Baso # (Auto) (0.01-0.08) K/mm3 Manual Slide Review Sodium (136-145) mEq/L Potassium (3.5-5.1) mEq/L Chloride (98-107) mEq/L Carbon Dioxide (21-32) mEq/L Anion Gap (5-15) BUN (7-18) mg/dL Creatinine (0.55-1.02) mg/dL Est Cr Clr Drug Dosing mL/min Estimated GFR (MDRD) (>60) mL/min BUN/Creatinine Ratio (14-18) Glucose (74-106) mg/dL Lactic Acid (0.4-2.0) mmol/L Calcium (8.5-10.1) mg/dL Magnesium 1.9 (1.8-2.4) mg/dl C-Reactive Protein (<1.0) mg/dL Med Orders - Current: Current Medications Acetaminophen (Tylenol) 650 mg PO Q6H PRN PRN Reason: Pain/Fever Al Hydroxide/Mg Hydroxide 30 (ml/ Lidocaine HCl 15 ml) 0 ml PO Q8HR@0700,1400, 2100 [facility] Last Admin: 03/12/18 06:44 Dose: Not Given Hydromorphone HCl (Dilaudid) 1 mg IVPUSH Q6H PRN PRN Reason: Pain Last Admin: 03/12/18 05:44 Dose: 1 mg Acyclovir 385 mg/ Sodium (Chloride) 107.7 mls @ 100 mls/hr IV Q8H [facility] Last Admin: 03/12/18 09:00 Dose: 100 mls/hr Lactated Ringer's (Ringers, Lactated) 1,000 mls @ 100 mls/hr IV ASDIRECTED [facility] Last Admin: 03/12/18 00:50 Dose: 100 mls/hr Promethazine HCl 12.5 mg/ (Sodium Chloride) 50.5 mls @ 100 mls/hr IV Q6H PRN PRN Reason: NAUSEA/VOMITING Ketorolac Tromethamine (Toradol) 30 mg IVPUSH Q6H [facility] Stop: 03/13/18 00:01 Last Admin: 03/12/18 11:33 Dose: 30 mg Miscellaneous Information (Remove Patch) 1 ea TRDERM Q72H PRN PRN Reason: IF USED Ondansetron HCl (Zofran) 4 mg IVPUSH Q8H PRN PRN Reason: Nausea Last Admin: 03/11/18 01:48 Dose: 4 mg Oxycodone HCl (Oxycontin) 10 mg PO Q12H [facility] Last Admin: 03/12/18 09:04 Dose: 10 mg Phenol/Menthol (Chloraseptic) 15 ml MUCMEM Q2H PRN PRN Reason: Sore Throat Last Admin: 03/12/18 09:12 Dose: 15 ml Scopolamine (Transderm-Scop) 1.5 mg TRDERM Q72H PRN PRN Reason: Nausea Last Admin: 03/11/18 06:29 Dose: 1.5 mg Sodium Chloride (Saline Flush) 10 ml FLUSH ASDIRECTED PRN PRN Reason: Keep Vein Open Last Admin: 03/10/18 20:54 Dose: 10 ml Temazepam (Restoril) 15 mg PO BEDTIME PRN PRN Reason: Sleep Last Admin: 03/11/18 21:08 Dose: 15 mg Discontinued Medications Acetaminophen (Tylenol) 650 mg PO Q4H PRN PRN Reason: Pain/Fever Last Admin: 03/11/18 06:57 Dose: 650 mg Hydromorphone HCl (Dilaudid) 0.5 mg IVPUSH ONETIME ONE Stop: 03/10/18 20:26 Last Admin: 03/10/18 20:55 Dose: 0.5 mg Hydromorphone HCl (Dilaudid) 0.5 mg IVPUSH ONETIME ONE Stop: 03/10/18 22:35 Last Admin: 03/10/18 23:05 Dose: 0.5 mg Hydromorphone HCl (Dilaudid) 0.25 mg IVPUSH Q4H PRN PRN Reason: Pain Last Admin: 03/11/18 01:20 Dose: 0.25 mg Hydromorphone HCl (Dilaudid) 0.25 mg IVPUSH Q4H PRN PRN Reason: Pain Hydromorphone HCl (Dilaudid) 1 mg IV ONETIME ONE Stop: 03/11/18 18:32 Last Admin: 03/11/18 18:39 Dose: 1 mg Hydromorphone HCl (Dilaudid) 1 mg IVPUSH ONETIME ONE Stop: 03/11/18 20:32 Last Admin: 03/11/18 21:08 Dose: 1 mg Sodium Chloride (Normal Saline) 1,000 mls @ 999 mls/hr IV ONETIME ONE Stop: 03/10/18 21:24 Last Admin: 03/10/18 20:54 Dose: 999 mls/hr Sodium Chloride (Normal Saline) 1,000 mls @ 125 mls/hr IV ONETIME ONE Stop: 03/11/18 06:38 Last Admin: 03/10/18 23:06 Dose: 125 mls/hr Acyclovir 400 mg/ Sodium (Chloride) 108 mls @ 100 mls/hr IV NOW STA Stop: 03/11/18 00:30 Last Admin: 03/10/18 23:50 Dose: 100 mls/hr Lactated Ringer's (Ringers, Lactated) 1,000 mls @ 999 mls/hr IV ASDIRECTED [facility] Stop: 03/12/18 02:31 Last Admin: 03/11/18 02:47 Dose: 999 mls/hr Promethazine HCl 12.5 mg/ (Sodium Chloride) 50.5 mls @ 100 mls/hr IV Q6H [facility] Last Admin: 03/12/18 06:46 Dose: 100 mls/hr Iopamidol (Isovue-300 (61%)) 80 ml IVPUSH ONETIME ONE Stop: 03/11/18 00:16 Last Admin: 03/11/18 00:16 Dose: 80 ml Ketorolac Tromethamine (Toradol) 30 mg IVPUSH ONETIME ONE Stop: 03/10/18 20:26 Last Admin: 03/10/18 20:58 Dose: 30 mg Ketorolac Tromethamine (Toradol) 30 mg IM ONETIME ONE Stop: 03/10/18 23:27 Last Admin: 03/10/18 23:50 Dose: 30 mg Lorazepam (Ativan) 0.25 mg IVPUSH ONETIME ONE Stop: 03/11/18 00:56 Last Admin: 03/11/18 01:22 Dose: 0.25 mg Magnesium Hydroxide (Milk Of Magnesia) 30 ml PO ONETIME ONE Stop: 03/11/18 18:13 Last Admin: 03/11/18 18:57 Dose: 30 ml - My Orders Last 24 Hours: My Active Orders 03/11/18 13:42 Phenol [Chloraseptic] 15 ml MUCMEM Q2H PRN 03/11/18 13:47 Consult to Dietary [Consult to Manager Culture] [CONS] Routine 03/11/18 14:00 Alum Hydrox/Mag Hydrox/Simeth [Mag-Al Plus] 30 ml Lidocaine 2% [Xylocaine 2% Viscous] 15 ml PO Q8HR@0700,1400,2100 03/11/18 20:31 Temazepam [Restoril] 15 mg PO BEDTIME PRN 03/11/18 21:55 HYDROmorphone [Dilaudid] 1 mg IVPUSH Q6H PRN 03/12/18 09:00 oxyCODONE ER [OxyCONTIN] 10 mg PO Q12H 03/12/18 11:45 Consult to Speech Language Pathology [RANGE MECHANIC Evaluation and Treatment] [CONS] Routine - Plan Plan:: Patient was seen and examined at bedside in concert with the medical student. The assessment and plans were discussed and agreed upon with me. Patient reports great sleep overnight and much more controlled oral pain. She is still reports dysphagia. Will consult dietary and RANGE MECHANIC for further eval.
[2018-03-12] MEDS ORDERED: Promethazine 12.5 MG in Sodium Chloride 0.9% 50 ML IV PRN (11:15)
[2018-03-12] MEDS: Temazepam 15 MG Cap PO PRN (20:47)
[2018-03-13] MEDS: Ketorolac 30 MG/ML SDV IVPUSH SCH (00:46)
[2018-03-13] MEDS: ACYCLOVIR IV SCH ×3 (00:47→15:15)
[2018-03-13] MEDS: SODIUM CHLORIDE 0.9% IV SCH ×3 (00:47→15:15)
[2018-03-13] MEDS: Alum Hydrox/Mag Hydrox/Simeth 30 ML, Lidocaine 2% 15 ML PO SCH ×6 (06:06→20:10)
[2018-03-13] MEDS: Lactated Ringers 1,000 ML IV SCH (06:06)
[2018-03-13] MEDS: Phenol 1.4% Oral Spray 20 ML Bottle MUCMEM PRN ×3 (08:07→14:21)
[2018-03-13] MEDS: oxyCODONE ER 10 MG TAB.ER PO SCH ×2 (08:09→20:09)
[2018-03-13] MEDS: Ibuprofen 600 MG Tab PO PRN ×2 (10:33→16:32)
--- NOTE | 2018-03-13 10:56 | PCM.PN ---
<Ariela Desai - Last Filed: 03/13/18 10:50> - General Info Date of Service: 03/13/18 Admission Dx/Problem (Free Text): Admission Diagnosis/Problem Admission Diagnosis/Problem Herpesviral gingivostomatitis and pharyngotonsillitis Functional Status: Reports: Pain Controlled, Tolerating Diet, Ambulating, Urinating - Review of Systems General: Reports: No Symptoms HEENT: Reports: Dysphasia, Sore Throat Pulmonary: Reports: No Symptoms Cardiovascular: Reports: No Symptoms Gastrointestinal: Reports: Constipation, Difficulty Swallowing Genitourinary: Reports: No Symptoms Musculoskeletal: Reports: No Symptoms Skin: Reports: No Symptoms Neurological: Reports: No Symptoms Psychiatric: Reports: No Symptoms Systems Review Comment:: Patient is still having oral pain, mostly of her tongue and roof of mouth. She says her throat pain and tender lymphadenopathy have improved. She is eating a pureed diet and tolerating it well though she still has difficulty swallowing. She had trouble sleeping last night but no issues otherwise. - Patient Data Vitals - Most Recent: Last Vital Signs Temp 99.5 F 03/13/18 08:06 Pulse 58 L 03/13/18 08:06 Resp 18 03/13/18 08:06 BP 140/85 03/13/18 08:06 Pulse Ox 98 03/13/18 08:06 Weight - Most Recent: 76.43 kg I&O - Last 24 Hours: Intake & Output 03/12/18 03/13/18 03/13/18 22:59 06:59 14:59 Intake Total 1672 2191 Output Total 1000 2200 Balance 672 -9 Lab Results Last 24 Hours: Laboratory Results - last 24 hr 03/13/18 03/13/18 03/13/18 Range/Units 05:50 05:50 05:50 WBC 5.69 (3.98-10.04) K/mm3 RBC 4.58 (3.98-5.22) M/mm3 Hgb 13.6 (11.2-15.7) gm/L Hct 38.6 (34.1-44.9) % MCV 84.3 (79.4-94.8) fl MCH 29.7 (25.6-32.2) pg MCHC 35.2 (32.2-35.5) g/dl RDW Std Deviation 38.0 (36.4-46.3) fL Plt Count 176 L (182-369) K/mm3 MPV 10.2 (9.4-12.3) fl Neut % (Auto) 48.5 (34.0-71.1) % Lymph % (Auto) 37.3 (19.3-51.7) % Hettinger % (Auto) 10.7 (4.7-12.5) % Eos % (Auto) 2.1 (0.7-5.8) Baso % (Auto) 0.9 (0.1-1.2) % Neut # (Auto) 2.76 (1.56-6.13) K/mm3 Lymph # (Auto) 2.12 (1.18-3.74) K/mm3 Hettinger # (Auto) 0.61 H (0.24-0.36) K/mm3 Eos # (Auto) 0.12 (0.04-0.36) K/mm3 Baso # (Auto) 0.05 (0.01-0.08) K/mm3 Manual Slide Review Normal smear Sodium 138 (136-145) mEq/L Potassium 3.8 (3.5-5.1) mEq/L Chloride 104 (98-107) mEq/L Carbon Dioxide 28 (21-32) mEq/L Anion Gap 9.8 (5-15) BUN 7 (7-18) mg/dL Creatinine 0.9 (0.55-1.02) mg/dL Est Cr Clr Drug Dosing 86.00 mL/min Estimated GFR (MDRD) > 60 (>60) mL/min BUN/Creatinine Ratio 7.8 L (14-18) Glucose 83 (74-106) mg/dL Lactic Acid 0.6 (0.4-2.0) mmol/L Calcium 8.5 (8.5-10.1) mg/dL Magnesium (1.8-2.4) mg/dl C-Reactive Protein 1.5 H* (<1.0) mg/dL 03/13/18 Range/Units 05:50 WBC (3.98-10.04) K/mm3 RBC (3.98-5.22) M/mm3 Hgb (11.2-15.7) gm/L Hct (34.1-44.9) % MCV (79.4-94.8) fl MCH (25.6-32.2) pg MCHC (32.2-35.5) g/dl RDW Std Deviation (36.4-46.3) fL Plt Count (182-369) K/mm3 MPV (9.4-12.3) fl Neut % (Auto) (34.0-71.1) % Lymph % (Auto) (19.3-51.7) % Hettinger % (Auto) (4.7-12.5) % Eos % (Auto) (0.7-5.8) Baso % (Auto) (0.1-1.2) % Neut # (Auto) (1.56-6.13) K/mm3 Lymph # (Auto) (1.18-3.74) K/mm3 Hettinger # (Auto) (0.24-0.36) K/mm3 Eos # (Auto) (0.04-0.36) K/mm3 Baso # (Auto) (0.01-0.08) K/mm3 Manual Slide Review Sodium (136-145) mEq/L Potassium (3.5-5.1) mEq/L Chloride (98-107) mEq/L Carbon Dioxide (21-32) mEq/L Anion Gap (5-15) BUN (7-18) mg/dL Creatinine (0.55-1.02) mg/dL Est Cr Clr Drug Dosing mL/min Estimated GFR (MDRD) (>60) mL/min BUN/Creatinine Ratio (14-18) Glucose (74-106) mg/dL Lactic Acid (0.4-2.0) mmol/L Calcium (8.5-10.1) mg/dL Magnesium 1.8 (1.8-2.4) mg/dl C-Reactive Protein (<1.0) mg/dL Med Orders - Current: Current Medications Acetaminophen (Tylenol) 650 mg PO Q6H PRN PRN Reason: Pain/Fever Al Hydroxide/Mg Hydroxide 30 (ml/ Lidocaine HCl 15 ml) 0 ml PO Q8HR@0700,1400, 2100 [facility] Last Admin: 03/13/18 06:06 Dose: 45 ml Hydromorphone HCl (Dilaudid) 1 mg IVPUSH Q6H PRN PRN Reason: Pain Last Admin: 03/12/18 15:59 Dose: 1 mg Acyclovir 385 mg/ Sodium (Chloride) 107.7 mls @ 100 mls/hr IV Q8H [facility] Last Admin: 03/13/18 08:08 Dose: 100 mls/hr Lactated Ringer's (Ringers, Lactated) 1,000 mls @ 100 mls/hr IV ASDIRECTED [facility] Last Admin: 03/13/18 06:06 Dose: 100 mls/hr Promethazine HCl 12.5 mg/ (Sodium Chloride) 50.5 mls @ 100 mls/hr IV Q6H PRN PRN Reason: NAUSEA/VOMITING Ibuprofen (Motrin) 600 mg PO Q6H PRN PRN Reason: Pain Last Admin: 03/13/18 10:33 Dose: 600 mg Miscellaneous Information (Remove Patch) 1 ea TRDERM Q72H PRN PRN Reason: IF USED Ondansetron HCl (Zofran) 4 mg IVPUSH Q8H PRN PRN Reason: Nausea Last Admin: 03/11/18 01:48 Dose: 4 mg Oxycodone HCl (Oxycontin) 10 mg PO Q12H [facility] Last Admin: 03/13/18 08:09 Dose: 10 mg Phenol/Menthol (Chloraseptic) 15 ml MUCMEM Q2H PRN PRN Reason: Sore Throat Last Admin: 03/13/18 10:01 Dose: 1 spray Scopolamine (Transderm-Scop) 1.5 mg TRDERM Q72H PRN PRN Reason: Nausea Last Admin: 03/11/18 06:29 Dose: 1.5 mg Sodium Chloride (Saline Flush) 10 ml FLUSH ASDIRECTED PRN PRN Reason: Keep Vein Open Last Admin: 03/10/18 20:54 Dose: 10 ml Temazepam (Restoril) 15 mg PO BEDTIME PRN PRN Reason: Sleep Last Admin: 03/12/18 20:47 Dose: 15 mg Discontinued Medications Acetaminophen (Tylenol) 650 mg PO Q4H PRN PRN Reason: Pain/Fever Last Admin: 03/11/18 06:57 Dose: 650 mg Hydromorphone HCl (Dilaudid) 0.5 mg IVPUSH ONETIME ONE Stop: 03/10/18 20:26 Last Admin: 03/10/18 20:55 Dose: 0.5 mg Hydromorphone HCl (Dilaudid) 0.5 mg IVPUSH ONETIME ONE Stop: 03/10/18 22:35 Last Admin: 03/10/18 23:05 Dose: 0.5 mg Hydromorphone HCl (Dilaudid) 0.25 mg IVPUSH Q4H PRN PRN Reason: Pain Last Admin: 03/11/18 01:20 Dose: 0.25 mg Hydromorphone HCl (Dilaudid) 0.25 mg IVPUSH Q4H PRN PRN Reason: Pain Hydromorphone HCl (Dilaudid) 1 mg IV ONETIME ONE Stop: 03/11/18 18:32 Last Admin: 03/11/18 18:39 Dose: 1 mg Hydromorphone HCl (Dilaudid) 1 mg IVPUSH ONETIME ONE Stop: 03/11/18 20:32 Last Admin: 03/11/18 21:08 Dose: 1 mg Sodium Chloride (Normal Saline) 1,000 mls @ 999 mls/hr IV ONETIME ONE Stop: 03/10/18 21:24 Last Admin: 03/10/18 20:54 Dose: 999 mls/hr Sodium Chloride (Normal Saline) 1,000 mls @ 125 mls/hr IV ONETIME ONE Stop: 03/11/18 06:38 Last Admin: 03/10/18 23:06 Dose: 125 mls/hr Acyclovir 400 mg/ Sodium (Chloride) 108 mls @ 100 mls/hr IV NOW STA Stop: 03/11/18 00:30 Last Admin: 03/10/18 23:50 Dose: 100 mls/hr Lactated Ringer's (Ringers, Lactated) 1,000 mls @ 999 mls/hr IV ASDIRECTED [facility] Stop: 03/12/18 02:31 Last Admin: 03/11/18 02:47 Dose: 999 mls/hr Promethazine HCl 12.5 mg/ (Sodium Chloride) 50.5 mls @ 100 mls/hr IV Q6H [facility] Last Admin: 03/12/18 06:46 Dose: 100 mls/hr Iopamidol (Isovue-300 (61%)) 80 ml IVPUSH ONETIME ONE Stop: 03/11/18 00:16 Last Admin: 03/11/18 00:16 Dose: 80 ml Ketorolac Tromethamine (Toradol) 30 mg IVPUSH ONETIME ONE Stop: 03/10/18 20:26 Last Admin: 03/10/18 20:58 Dose: 30 mg Ketorolac Tromethamine (Toradol) 30 mg IM ONETIME ONE Stop: 03/10/18 23:27 Last Admin: 03/10/18 23:50 Dose: 30 mg Ketorolac Tromethamine (Toradol) 30 mg IVPUSH Q6H [facility] Stop: 03/13/18 00:01 Last Admin: 03/13/18 00:46 Dose: 30 mg Lorazepam (Ativan) 0.25 mg IVPUSH ONETIME ONE Stop: 03/11/18 00:56 Last Admin: 03/11/18 01:22 Dose: 0.25 mg Magnesium Hydroxide (Milk Of Magnesia) 30 ml PO ONETIME ONE Stop: 03/11/18 18:13 Last Admin: 03/11/18 18:57 Dose: 30 ml - Exam General: Alert, Oriented, Cooperative HEENT: Pupils Equal, Pupils Reactive, EOMI, Mucous Membr. Moist/Lewellen, Other ( oral vesicles) Neck: Supple, Lymphadenopathy Lungs: Clear to Auscultation, Normal Respiratory Effort Cardiovascular: Regular Rate, Regular Rhythm GI/Abdominal Exam: Normal Bowel Sounds, Soft, Non-Tender (Female) Exam: Deferred Back Exam: Normal Inspection, Full Range of Motion Extremities: Normal Inspection, Normal Range of Motion, Non-Tender Peripheral Pulses: 2+: Radial (L), Posterior Tibial (L), Posterior Tibial (R) Skin: Warm, Dry, Intact Neurological: No New Focal Deficit Psy/Mental Status: Alert, Normal Affect, Normal Mood Physical Findings Comments:: Patient appears comfortable and in no acute distress. Lymphadenopathy is still operator whiskey but now improved. There are less vesicles and blisters on her tongue and palate. Tongue has thick white coating, which is easily scraped off with tongue depressor. No other abnormalities found. - Problem List & Annotations (1) Primary herpes simplex with gingivostomatitis SNOMED Code(s): 31242822 Code(s): B00.2 - HERPESVIRAL GINGIVOSTOMATITIS AND PHARYNGOTONSILLITIS Status: Acute Current Visit: Yes - Problem List Review Problem List Initiated/Reviewed/Updated: Yes - Plan Plan:: Herpes Simplex, gingivostomatitis * Consistent with clinical presentation * Stomatitis, dysphagia, painful lymphadenopathy * Clustered vesicles on tongue, palate * Afebrile w/o leukocytosis * Management * IVF for hydration * Analgesics - toradol, dilaudid * Anti-viral treatment - acyclovir * Mouthwash * Chloraseptic spray prn * GI cocktail Q8H * Anti-emetics prn * Advance diet as tolerated - has spoken with dietary, MUSHROOM CUTTER * Encourage ambulation * Switch to oral medication tomorrow Ariela Desai, MS-3. Dr. Benitez has examined the patient and reviewed the note. <Conrado Benitez T - Last Filed: 03/13/18 12:28> - Patient Data Vitals - Most Recent: Last Vital Signs Temp 37.5 C 03/13/18 08:06 Pulse 58 L 03/13/18 08:06 Resp 18 03/13/18 08:06 BP 140/85 03/13/18 08:06 Pulse Ox 98 03/13/18 08:06 I&O - Last 24 Hours: Intake & Output 03/12/18 03/13/18 03/13/18 22:59 06:59 14:59 Intake Total 1672 2191 491 Output Total 1000 2200 Balance 672 -9 491 Lab Results Last 24 Hours: Laboratory Results - last 24 hr 03/13/18 03/13/18 03/13/18 Range/Units 05:50 05:50 05:50 WBC 5.69 (3.98-10.04) K/mm3 RBC 4.58 (3.98-5.22) M/mm3 Hgb 13.6 (11.2-15.7) gm/L Hct 38.6 (34.1-44.9) % MCV 84.3 (79.4-94.8) fl MCH 29.7 (25.6-32.2) pg MCHC 35.2 (32.2-35.5) g/dl RDW Std Deviation 38.0 (36.4-46.3) fL Plt Count 176 L (182-369) K/mm3 MPV 10.2 (9.4-12.3) fl Neut % (Auto) 48.5 (34.0-71.1) % Lymph % (Auto) 37.3 (19.3-51.7) % Hettinger % (Auto) 10.7 (4.7-12.5) % Eos % (Auto) 2.1 (0.7-5.8) Baso % (Auto) 0.9 (0.1-1.2) % Neut # (Auto) 2.76 (1.56-6.13) K/mm3 Lymph # (Auto) 2.12 (1.18-3.74) K/mm3 Hettinger # (Auto) 0.61 H (0.24-0.36) K/mm3 Eos # (Auto) 0.12 (0.04-0.36) K/mm3 Baso # (Auto) 0.05 (0.01-0.08) K/mm3 Manual Slide Review Normal smear Sodium 138 (136-145) mEq/L Potassium 3.8 (3.5-5.1) mEq/L Chloride 104 (98-107) mEq/L Carbon Dioxide 28 (21-32) mEq/L Anion Gap 9.8 (5-15) BUN 7 (7-18) mg/dL Creatinine 0.9 (0.55-1.02) mg/dL Est Cr Clr Drug Dosing 86.00 mL/min Estimated GFR (MDRD) > 60 (>60) mL/min BUN/Creatinine Ratio 7.8 L (14-18) Glucose 83 (74-106) mg/dL Lactic Acid 0.6 (0.4-2.0) mmol/L Calcium 8.5 (8.5-10.1) mg/dL Magnesium (1.8-2.4) mg/dl C-Reactive Protein 1.5 H* (<1.0) mg/dL 03/13/18 Range/Units 05:50 WBC (3.98-10.04) K/mm3 RBC (3.98-5.22) M/mm3 Hgb (11.2-15.7) gm/L Hct (34.1-44.9) % MCV (79.4-94.8) fl MCH (25.6-32.2) pg MCHC (32.2-35.5) g/dl RDW Std Deviation (36.4-46.3) fL Plt Count (182-369) K/mm3 MPV (9.4-12.3) fl Neut % (Auto) (34.0-71.1) % Lymph % (Auto) (19.3-51.7) % Hettinger % (Auto) (4.7-12.5) % Eos % (Auto) (0.7-5.8) Baso % (Auto) (0.1-1.2) % Neut # (Auto) (1.56-6.13) K/mm3 Lymph # (Auto) (1.18-3.74) K/mm3 Hettinger # (Auto) (0.24-0.36) K/mm3 Eos # (Auto) (0.04-0.36) K/mm3 Baso # (Auto) (0.01-0.08) K/mm3 Manual Slide Review Sodium (136-145) mEq/L Potassium (3.5-5.1) mEq/L Chloride (98-107) mEq/L Carbon Dioxide (21-32) mEq/L Anion Gap (5-15) BUN (7-18) mg/dL Creatinine (0.55-1.02) mg/dL Est Cr Clr Drug Dosing mL/min Estimated GFR (MDRD) (>60) mL/min BUN/Creatinine Ratio (14-18) Glucose (74-106) mg/dL Lactic Acid (0.4-2.0) mmol/L Calcium (8.5-10.1) mg/dL Magnesium 1.8 (1.8-2.4) mg/dl C-Reactive Protein (<1.0) mg/dL Med Orders - Current: Current Medications Acetaminophen (Tylenol) 650 mg PO Q6H PRN PRN Reason: Pain/Fever Al Hydroxide/Mg Hydroxide 30 (ml/ Lidocaine HCl 15 ml) 0 ml PO Q8HR@0700,1400, 2100 [facility] Last Admin: 03/13/18 06:06 Dose: 45 ml Hydromorphone HCl (Dilaudid) 1 mg IVPUSH Q6H PRN PRN Reason: Pain Last Admin: 03/12/18 15:59 Dose: 1 mg Acyclovir 385 mg/ Sodium (Chloride) 107.7 mls @ 100 mls/hr IV Q8H [facility] Last Admin: 03/13/18 08:08 Dose: 100 mls/hr Promethazine HCl 12.5 mg/ (Sodium Chloride) 50.5 mls @ 100 mls/hr IV Q6H PRN PRN Reason: NAUSEA/VOMITING Ibuprofen (Motrin) 600 mg PO Q6H PRN PRN Reason: Pain Last Admin: 03/13/18 10:33 Dose: 600 mg Miscellaneous Information (Remove Patch) 1 ea TRDERM Q72H PRN PRN Reason: IF USED Ondansetron HCl (Zofran) 4 mg IVPUSH Q8H PRN PRN Reason: Nausea Last Admin: 03/11/18 01:48 Dose: 4 mg Oxycodone HCl (Oxycontin) 10 mg PO Q12H [facility] Last Admin: 03/13/18 08:09 Dose: 10 mg Phenol/Menthol (Chloraseptic) 15 ml MUCMEM Q2H PRN PRN Reason: Sore Throat Last Admin: 03/13/18 10:01 Dose: 1 spray Scopolamine (Transderm-Scop) 1.5 mg TRDERM Q72H PRN PRN Reason: Nausea Last Admin: 03/11/18 06:29 Dose: 1.5 mg Sodium Chloride (Saline Flush) 10 ml FLUSH ASDIRECTED PRN PRN Reason: Keep Vein Open Last Admin: 03/10/18 20:54 Dose: 10 ml Temazepam (Restoril) 15 mg PO BEDTIME PRN PRN Reason: Sleep Last Admin: 03/12/18 20:47 Dose: 15 mg Discontinued Medications Acetaminophen (Tylenol) 650 mg PO Q4H PRN PRN Reason: Pain/Fever Last Admin: 03/11/18 06:57 Dose: 650 mg Hydromorphone HCl (Dilaudid) 0.5 mg IVPUSH ONETIME ONE Stop: 03/10/18 20:26 Last Admin: 03/10/18 20:55 Dose: 0.5 mg Hydromorphone HCl (Dilaudid) 0.5 mg IVPUSH ONETIME ONE Stop: 03/10/18 22:35 Last Admin: 03/10/18 23:05 Dose: 0.5 mg Hydromorphone HCl (Dilaudid) 0.25 mg IVPUSH Q4H PRN PRN Reason: Pain Last Admin: 03/11/18 01:20 Dose: 0.25 mg Hydromorphone HCl (Dilaudid) 0.25 mg IVPUSH Q4H PRN PRN Reason: Pain Hydromorphone HCl (Dilaudid) 1 mg IV ONETIME ONE Stop: 03/11/18 18:32 Last Admin: 03/11/18 18:39 Dose: 1 mg Hydromorphone HCl (Dilaudid) 1 mg IVPUSH ONETIME ONE Stop: 03/11/18 20:32 Last Admin: 03/11/18 21:08 Dose: 1 mg Sodium Chloride (Normal Saline) 1,000 mls @ 999 mls/hr IV ONETIME ONE Stop: 03/10/18 21:24 Last Admin: 03/10/18 20:54 Dose: 999 mls/hr Sodium Chloride (Normal Saline) 1,000 mls @ 125 mls/hr IV ONETIME ONE Stop: 03/11/18 06:38 Last Admin: 03/10/18 23:06 Dose: 125 mls/hr Acyclovir 400 mg/ Sodium (Chloride) 108 mls @ 100 mls/hr IV NOW STA Stop: 03/11/18 00:30 Last Admin: 03/10/18 23:50 Dose: 100 mls/hr Lactated Ringer's (Ringers, Lactated) 1,000 mls @ 999 mls/hr IV ASDIRECTED [facility] Stop: 03/12/18 02:31 Last Admin: 03/11/18 02:47 Dose: 999 mls/hr Lactated Ringer's (Ringers, Lactated) 1,000 mls @ 100 mls/hr IV ASDIRECTED [facility] Last Admin: 03/13/18 06:06 Dose: 100 mls/hr Promethazine HCl 12.5 mg/ (Sodium Chloride) 50.5 mls @ 100 mls/hr IV Q6H [facility] Last Admin: 03/12/18 06:46 Dose: 100 mls/hr Iopamidol (Isovue-300 (61%)) 80 ml IVPUSH ONETIME ONE Stop: 03/11/18 00:16 Last Admin: 03/11/18 00:16 Dose: 80 ml Ketorolac Tromethamine (Toradol) 30 mg IVPUSH ONETIME ONE Stop: 03/10/18 20:26 Last Admin: 03/10/18 20:58 Dose: 30 mg Ketorolac Tromethamine (Toradol) 30 mg IM ONETIME ONE Stop: 09/30/18 23:27 Last Admin: 03/10/18 23:50 Dose: 30 mg Ketorolac Tromethamine (Toradol) 30 mg IVPUSH Q6H [facility] Stop: 03/13/18 00:01 Last Admin: 03/13/18 00:46 Dose: 30 mg Lorazepam (Ativan) 0.25 mg IVPUSH ONETIME ONE Stop: 03/11/18 00:56 Last Admin: 03/11/18 01:22 Dose: 0.25 mg Magnesium Hydroxide (Milk Of Magnesia) 30 ml PO ONETIME ONE Stop: 03/11/18 18:13 Last Admin: 03/11/18 18:57 Dose: 30 ml - My Orders Last 24 Hours: My Active Orders 03/12/18 11:45 Consult to Speech Language Pathology [MUSHROOM CUTTER Evaluation and Treatment] [CONS] Routine 03/12/18 Dinner Gage Diet [DIET] 03/13/18 10:05 Ibuprofen [Motrin] 600 mg PO Q6H PRN - Plan Plan:: Patient was seen and examined at bedside in concert with the medical student. The assessment and plans were discussed and agreed upon with me. Patient slept pretty good overnight. Her pain is controlled and she is no tolerating her current. Her tongue appears to be much better. Encouraged patient to ambulate as much as she can to reduce risk for developing pneumonia or blood clot. Hopefully, we can switch most of her IV medications tomorrow.
[2018-03-13] MEDS: Temazepam 15 MG Cap PO PRN (20:09)
[2018-03-13] MEDS: Ondansetron 4 MG/2 ML SDV IVPUSH PRN (22:27)
[2018-03-14] MEDS: ACYCLOVIR IV SCH ×2 (00:29→08:41)
[2018-03-14] MEDS: SODIUM CHLORIDE 0.9% IV SCH ×2 (00:29→08:41)
[2018-03-14] MEDS: Alum Hydrox/Mag Hydrox/Simeth 30 ML, Lidocaine 2% 15 ML PO SCH ×4 (06:24→14:02)
[2018-03-14] MEDS: oxyCODONE ER 10 MG TAB.ER PO SCH (08:40)
--- NOTE | 2018-03-14 10:46 | PCM.DCSUM1 ---
<Ariela Desai - Last Filed: 03/14/18 10:40> Discharge Summary - Hospital Course HPI Initial Comments: 22 y/o female was initially seen in the [id number] for painful lymphadenopathy and oral sores. Tests for strep, mono, and yeast were negative. She was started on Medrol Dosepak at that time. Symptoms did not improve and she presented to the ER, where she was diagnosed with herpes stomatitis and prescribed Valtrex. Despite taking medication as prescribed, symptoms continued to worsen. Over the course of 48 hours, she had increasing difficulty swallowing , change in voice, and decreased appetite, as well as fever and chills, so she returned to the ER. Infectious work up with the exception of herpes simplex has been unremarkable including HIV. She had a CT of head and neck which documented no compromise in her airway. She was admitted to [place] with telemetry for further evaluation and management. Upon admission, patient reported significant pain in mouth, throat, and cervical lymph nodes. She also had loss of appetite and difficulty swallowing. Severe stomatitis and multiple vesicles on her tongue and palate were present. She was afebrile without leukocytosis. During the four day hospital stay, the patient received therapy consisting of GI cocktail Q8H, chloraspetic spray prn, acyclovir for infection, and dilaudid and toradol for pain. Consults with JOINT CUTTER and dietary were completed and diet was advanced as tolerated. Patient reports appetite has slowly returned and she is now tolerating food. Stomatitis and oral vesicles have significantly improved and she reports pain is much better. Diagnosis: Stroke: No Modified Payne Scale: No Symptoms at All Modified Payne Scale Score: 0 - Discharge Data Discharge Date: 03/14/18 Discharge Disposition: Home, Self-Care 01 Condition: Good - Discharge Diagnosis/Problem(s) (1) Primary herpes simplex with gingivostomatitis SNOMED Code(s): 17620653 ICD Code: B00.2 - HERPESVIRAL GINGIVOSTOMATITIS AND PHARYNGOTONSILLITIS Status: Acute - Patient Summary/Data Consults: Consultations 03/11/18 07:48 Consult to Case Management/Sr. Merchandise Planner [CONS] Routine 03/11/18 13:47 Consult to Dietary [Consult to Insurance Sales Representative] [CONS] Routine 03/12/18 11:45 Consult to Speech Language Pathology [JOINT CUTTER Evaluation and Treatment] [CONS] Routine - Patient Instructions Diet: Usual Diet as Tolerated Activity: As Tolerated Showering/Bathing: May Shower Notify Provider of: Fever, Increased Pain, Swelling and Redness - Discharge Plan *PRESCRIPTION DRUG MONITORING PROGRAM REVIEWED*: No *COPY OF PRESCRIPTION DRUG MONITORING REPORT IN PATIENT TAIWO: No Prescriptions/Med Rec: Naproxen Sodium [Naproxen Sodium ER] 375 mg PO BID #10 tbmp.24hr Home Medications: Home Meds methylPREDNISolone [Medrol] 1 dose PO ASDIRECTED 03/09/18 [History] oxyCODONE HCl/Acetaminophen [Percocet 5-325 mg Tablet] 1 - 2 each PO Q4H PRN # 24 tablet 03/09/18 [Rx] valACYclovir [Valtrex] 1,000 mg PO TID #21 tab 03/09/18 [Rx] Naproxen Sodium [Naproxen Sodium ER] 375 mg PO BID #10 tbmp.24hr 03/14/18 [Rx] Patient Handouts: Stomatitis, [id number], Viral Illness, Adult, Dysphagia Eating Plan, Pureed Referrals: Cookie Valdes MD [Physician] - 03/25/18 10:00 am (Please check in at 9:45 am.) - Discharge Summary/Plan Comment Discharge Summary/Plan Comment: The patient will be discharged on valtrex, medrol, and oxycodone. Diet can be advanced as tolerated. She can return to school and work next week Sunday. Activity can be resumed as tolerated. Patient is educated on herpes infection and encouraged to find alternate living arrangements for the time being as she was previously living with her brother, his two young children, and his who is . She understands that her infection can return in times of stress or sickness. She should follow-up with PCP for further long-term prevention and management of herpes simplex outbreaks. - General Info Date of Service: 03/14/18 Admission Dx/Problem (Free Text: Admission Diagnosis/Problem Admission Diagnosis/Problem Herpesviral gingivostomatitis and pharyngotonsillitis Functional Status: Reports: Pain Controlled, Tolerating Diet, Ambulating, Urinating - Review of Systems General: Reports: No Symptoms. Denies: Fever, Chills HEENT: Reports: Dysphasia, Other (tender lymphadenpathy) Pulmonary: Reports: Cough Cardiovascular: Reports: No Symptoms Gastrointestinal: Reports: Difficulty Swallowing Genitourinary: Reports: No Symptoms Musculoskeletal: Reports: No Symptoms Skin: Reports: No Symptoms Neurological: Reports: No Symptoms Psychiatric: Reports: No Symptoms Systems Review Comment: Patient states she is doing well today. She slept well through the night with no issues. She is still experiencing tender lymphadenopathy and difficulty swallowing but these symptoms are improving. Her appetite is slowly returning and she is eating more. She does report a new onset cough and chest congestion today. She otherwise has no other symptoms or pain. She feels ready to return home. - Patient Data Vitals - Most Recent: Last Vital Signs Temp 98.8 F 03/14/18 08:29 Pulse 60 03/14/18 08:29 Resp 16 03/14/18 08:29 BP 121/91 H 03/14/18 08:29 Pulse Ox 98 03/14/18 08:29 Weight - Most Recent: 74.984 kg I&O - Last 24 hours: Intake & Output 03/13/18 03/14/18 03/14/18 22:59 06:59 14:59 Intake Total 100 700 Output Total 1200 Balance 100 -500 Lab Results - Last 24 hrs: Laboratory Results - last 24 hr 03/14/18 03/14/18 03/14/18 Range/Units 05:32 05:32 05:32 WBC 7.96 (3.98-10.04) K/mm3 RBC 4.83 (3.98-5.22) M/mm3 Hgb 14.3 (11.2-15.7) gm/L Hct 40.4 (34.1-44.9) % MCV 83.6 (79.4-94.8) fl MCH 29.6 (25.6-32.2) pg MCHC 35.4 (32.2-35.5) g/dl RDW Std Deviation 37.8 (36.4-46.3) fL Plt Count 193 (182-369) K/mm3 MPV 10.2 (9.4-12.3) fl Neut % (Auto) 56.3 (34.0-71.1) % Lymph % (Auto) 31.0 (19.3-51.7) % [place] % (Auto) 9.7 (4.7-12.5) % Eos % (Auto) 2.1 (0.7-5.8) Baso % (Auto) 0.5 (0.1-1.2) % Neut # (Auto) 4.48 (1.56-6.13) K/mm3 Lymph # (Auto) 2.47 (1.18-3.74) K/mm3 [place] # (Auto) 0.77 H (0.24-0.36) K/mm3 Eos # (Auto) 0.17 (0.04-0.36) K/mm3 Baso # (Auto) 0.04 (0.01-0.08) K/mm3 Manual Slide Review Normal smear Sodium 141 (136-145) mEq/L Potassium 3.8 (3.5-5.1) mEq/L Chloride 105 (98-107) mEq/L Carbon Dioxide 29 (21-32) mEq/L Anion Gap 10.8 (5-15) BUN 10 (7-18) mg/dL Creatinine 1.1 H (0.55-1.02) mg/dL Est Cr Clr Drug Dosing 70.37 mL/min Estimated GFR (MDRD) > 60 (>60) mL/min BUN/Creatinine Ratio 9.1 L (14-18) Glucose 106 (74-106) mg/dL Lactic Acid 0.5 (0.4-2.0) mmol/L Calcium 8.8 (8.5-10.1) mg/dL Magnesium (1.8-2.4) mg/dl C-Reactive Protein 0.8 (<1.0) mg/dL 03/14/18 Range/Units 05:32 WBC (3.98-10.04) K/mm3 RBC (3.98-5.22) M/mm3 Hgb (11.2-15.7) gm/L Hct (34.1-44.9) % MCV (79.4-94.8) fl MCH (25.6-32.2) pg MCHC (32.2-35.5) g/dl RDW Std Deviation (36.4-46.3) fL Plt Count (182-369) K/mm3 MPV (9.4-12.3) fl Neut % (Auto) (34.0-71.1) % Lymph % (Auto) (19.3-51.7) % [place] % (Auto) (4.7-12.5) % Eos % (Auto) (0.7-5.8) Baso % (Auto) (0.1-1.2) % Neut # (Auto) (1.56-6.13) K/mm3 Lymph # (Auto) (1.18-3.74) K/mm3 [place] # (Auto) (0.24-0.36) K/mm3 Eos # (Auto) (0.04-0.36) K/mm3 Baso # (Auto) (0.01-0.08) K/mm3 Manual Slide Review Sodium (136-145) mEq/L Potassium (3.5-5.1) mEq/L Chloride (98-107) mEq/L Carbon Dioxide (21-32) mEq/L Anion Gap (5-15) BUN (7-18) mg/dL Creatinine (0.55-1.02) mg/dL Est Cr Clr Drug Dosing mL/min Estimated GFR (MDRD) (>60) mL/min BUN/Creatinine Ratio (14-18) Glucose (74-106) mg/dL Lactic Acid (0.4-2.0) mmol/L Calcium (8.5-10.1) mg/dL Magnesium 2.2 (1.8-2.4) mg/dl C-Reactive Protein (<1.0) mg/dL Med Orders - Current: Current Medications Acetaminophen (Tylenol) 650 mg PO Q6H PRN PRN Reason: Pain/Fever Al Hydroxide/Mg Hydroxide 30 (ml/ Lidocaine HCl 15 ml) 0 ml PO Q8HR@0700,1400, 2100 [facility] Last Admin: 03/14/18 06:24 Dose: Not Given Hydromorphone HCl (Dilaudid) 1 mg IVPUSH Q6H PRN PRN Reason: Pain Last Admin: 03/12/18 15:59 Dose: 1 mg Acyclovir 385 mg/ Sodium (Chloride) 107.7 mls @ 100 mls/hr IV Q8H [facility] Last Admin: 03/14/18 08:41 Dose: 100 mls/hr Promethazine HCl 12.5 mg/ (Sodium Chloride) 50.5 mls @ 100 mls/hr IV Q6H PRN PRN Reason: NAUSEA/VOMITING Ibuprofen (Motrin) 600 mg PO Q6H PRN PRN Reason: Pain Last Admin: 03/13/18 16:32 Dose: 600 mg Miscellaneous Information (Remove Patch) 1 ea TRDERM Q72H PRN PRN Reason: IF USED Ondansetron HCl (Zofran) 4 mg IVPUSH Q8H PRN PRN Reason: Nausea Last Admin: 03/13/18 22:27 Dose: 4 mg Oxycodone HCl (Oxycontin) 10 mg PO Q12H [facility] Last Admin: 03/14/18 08:40 Dose: 10 mg Phenol/Menthol (Chloraseptic) 15 ml MUCMEM Q2H PRN PRN Reason: Sore Throat Last Admin: 03/13/18 14:21 Dose: 1 spray Scopolamine (Transderm-Scop) 1.5 mg TRDERM Q72H PRN PRN Reason: Nausea Last Admin: 03/11/18 06:29 Dose: 1.5 mg Sodium Chloride (Saline Flush) 10 ml FLUSH ASDIRECTED PRN PRN Reason: Keep Vein Open Last Admin: 03/10/18 20:54 Dose: 10 ml Temazepam (Restoril) 15 mg PO BEDTIME PRN PRN Reason: Sleep Last Admin: 03/13/18 20:09 Dose: 15 mg Discontinued Medications Acetaminophen (Tylenol) 650 mg PO Q4H PRN PRN Reason: Pain/Fever Last Admin: 03/11/18 06:57 Dose: 650 mg Hydromorphone HCl (Dilaudid) 0.5 mg IVPUSH ONETIME ONE Stop: 03/10/18 20:26 Last Admin: 03/10/18 20:55 Dose: 0.5 mg Hydromorphone HCl (Dilaudid) 0.5 mg IVPUSH ONETIME ONE Stop: 03/10/18 22:35 Last Admin: 03/10/18 23:05 Dose: 0.5 mg Hydromorphone HCl (Dilaudid) 0.25 mg IVPUSH Q4H PRN PRN Reason: Pain Last Admin: 03/11/18 01:20 Dose: 0.25 mg Hydromorphone HCl (Dilaudid) 0.25 mg IVPUSH Q4H PRN PRN Reason: Pain Hydromorphone HCl (Dilaudid) 1 mg IV ONETIME ONE Stop: 03/11/18 18:32 Last Admin: 03/11/18 18:39 Dose: 1 mg Hydromorphone HCl (Dilaudid) 1 mg IVPUSH ONETIME ONE Stop: 03/11/18 20:32 Last Admin: 03/11/18 21:08 Dose: 1 mg Sodium Chloride (Normal Saline) 1,000 mls @ 999 mls/hr IV ONETIME ONE Stop: 03/10/18 21:24 Last Admin: 03/10/18 20:54 Dose: 999 mls/hr Sodium Chloride (Normal Saline) 1,000 mls @ 125 mls/hr IV ONETIME ONE Stop: 03/11/18 06:38 Last Admin: 03/10/18 23:06 Dose: 125 mls/hr Acyclovir 400 mg/ Sodium (Chloride) 108 mls @ 100 mls/hr IV NOW STA Stop: 03/11/18 00:30 Last Admin: 03/10/18 23:50 Dose: 100 mls/hr Lactated Ringer's (Ringers, Lactated) 1,000 mls @ 999 mls/hr IV ASDIRECTED [facility] Stop: 03/12/18 02:31 Last Admin: 03/11/18 02:47 Dose: 999 mls/hr Lactated Ringer's (Ringers, Lactated) 1,000 mls @ 100 mls/hr IV ASDIRECTED [facility] Last Admin: 03/13/18 06:06 Dose: 100 mls/hr Promethazine HCl 12.5 mg/ (Sodium Chloride) 50.5 mls @ 100 mls/hr IV Q6H [facility] Last Admin: 03/12/18 06:46 Dose: 100 mls/hr Iopamidol (Isovue-300 (61%)) 80 ml IVPUSH ONETIME ONE Stop: 03/11/18 00:16 Last Admin: 03/11/18 00:16 Dose: 80 ml Ketorolac Tromethamine (Toradol) 30 mg IVPUSH ONETIME ONE Stop: 03/10/18 20:26 Last Admin: 03/10/18 20:58 Dose: 30 mg Ketorolac Tromethamine (Toradol) 30 mg IM ONETIME ONE Stop: 03/10/18 23:27 Last Admin: 03/10/18 23:50 Dose: 30 mg Ketorolac Tromethamine (Toradol) 30 mg IVPUSH Q6H [facility] Stop: 03/13/18 00:01 Last Admin: 03/13/18 00:46 Dose: 30 mg Lorazepam (Ativan) 0.25 mg IVPUSH ONETIME ONE Stop: 03/11/18 00:56 Last Admin: 03/11/18 01:22 Dose: 0.25 mg Magnesium Hydroxide (Milk Of Magnesia) 30 ml PO ONETIME ONE Stop: 03/11/18 18:13 Last Admin: 03/11/18 18:57 Dose: 30 ml - Exam General: Reports: Alert, Oriented, Cooperative, No Acute Distress HEENT: Reports: Pupils Equal, Pupils Reactive, EOMI, Mucous Membr. Moist/[place], Other (oral vesicles) Neck: Reports: Supple, Trachea Midline, Lymphadenopathy Lungs: Reports: Clear to Auscultation, Normal Respiratory Effort Cardiovascular: Reports: Regular Rate, Regular Rhythm GI/Abdominal Exam: Normal Bowel Sounds, Soft, Non-Tender (Female) Exam: Deferred Rectal (Female) Exam: Deferred Back Exam: Reports: Normal Inspection, Full Range of Motion Extremities: Normal Inspection, Normal Range of Motion, Non-Tender Skin: Reports: Warm, Dry, Intact Neurological: Reports: No New Focal Deficit Psy/Mental Status: Reports: Alert, Normal Affect, Normal Mood Physical Findings Comments:: Patient appears comfortable and in no acute distress. She is pleasant and cooperative. There is some tenderness to palpation of cervical lymph nodes. Stomatitis and vesicles on tongue and palate are much improved today. She has occasional coughing throughout the exam. No other abnormalities found. Ariela Desai, MS-3. Dr. Benitez has examined the patient and reviewed the note. <Conrado Benitez T - Last Filed: 03/15/18 10:53> Discharge Summary - Discharge Diagnosis/Problem(s) (1) Primary herpes simplex with gingivostomatitis SNOMED Code(s): 37688402 ICD Code: B00.2 - HERPESVIRAL GINGIVOSTOMATITIS AND PHARYNGOTONSILLITIS Status: Acute - Patient Summary/Data Operative Procedure(s) Performed: None Complications: None Consults: Consultations 03/11/18 07:48 Consult to Case Management/Sr. Merchandise Planner [CONS] Routine 03/11/18 13:47 Consult to Dietary [Consult to Insurance Sales Representative] [CONS] Routine 03/12/18 11:45 Consult to Speech Language Pathology [JOINT CUTTER Evaluation and Treatment] [CONS] Routine Labs Pending at D/C: None Recommended Follow-up Testing/Procedures: None Planned Operative Procedure(s) after DC: None Hospital Course: Patient was seen and examined at bedside in concert with the medical student. The discharge assessment and plans were discussed and agreed upon with me. Briefly, the patient was primarily admitted for medical management of oral herpes. She was initially diagnosed in ED and prescribed with an oral antiviral agent but she continued to get worse so she came back for further medical management. Her infectious work up included a negative screening test for [place] and HIV. On the floor, she received intravenous acyclovir and her pain was controlled with combined NSAIDs and Opioids. The patient slowly improved on this regimen. During her short stay, Dietary and JOINT CUTTER were consulted for management of her nutritional intake and assessment of her dysphagia respectively. Her hospital course was uncomplicated and she remained stable until discharge. Patient was advised to continue home regimen of valtrex and oxycontin as previously prescribed and to follow discharge instructions. She was further advised to come back or seek immediate care should her symptoms persist or gets worse. The patient expressed understanding and in agreement with the plans as discussed above. All questions were answered. - Patient Data Vitals - Most Recent: Last Vital Signs Temp 37.1 C 03/14/18 08:29 Pulse 60 03/14/18 08:29 Resp 16 03/14/18 08:29 BP 121/91 H 03/14/18 08:29 Pulse Ox 98 03/14/18 08:29 I&O - Last 24 hours: Intake & Output 03/14/18 03/14/18 03/14/18 06:59 14:59 22:59 Intake Total 700 Output Total 1200 Balance -500 Lab Results - Last 24 hrs: Laboratory Results - last 24 hr 03/14/18 03/14/18 03/14/18 Range/Units 05:32 05:32 05:32 WBC 7.96 (3.98-10.04) K/mm3 RBC 4.83 (3.98-5.22) M/mm3 Hgb 14.3 (11.2-15.7) gm/L Hct 40.4 (34.1-44.9) % MCV 83.6 (79.4-94.8) fl MCH 29.6 (25.6-32.2) pg MCHC 35.4 (32.2-35.5) g/dl RDW Std Deviation 37.8 (36.4-46.3) fL Plt Count 193 (182-369) K/mm3 MPV 10.2 (9.4-12.3) fl Neut % (Auto) 56.3 (34.0-71.1) % Lymph % (Auto) 31.0 (19.3-51.7) % [place] % (Auto) 9.7 (4.7-12.5) % Eos % (Auto) 2.1 (0.7-5.8) Baso % (Auto) 0.5 (0.1-1.2) % Neut # (Auto) 4.48 (1.56-6.13) K/mm3 Lymph # (Auto) 2.47 (1.18-3.74) K/mm3 [place] # (Auto) 0.77 H (0.24-0.36) K/mm3 Eos # (Auto) 0.17 (0.04-0.36) K/mm3 Baso # (Auto) 0.04 (0.01-0.08) K/mm3 Manual Slide Review Normal smear Sodium 141 (136-145) mEq/L Potassium 3.8 (3.5-5.1) mEq/L Chloride 105 (98-107) mEq/L Carbon Dioxide 29 (21-32) mEq/L Anion Gap 10.8 (5-15) BUN 10 (7-18) mg/dL Creatinine 1.1 H (0.55-1.02) mg/dL Est Cr Clr Drug Dosing 70.37 mL/min Estimated GFR (MDRD) > 60 (>60) mL/min BUN/Creatinine Ratio 9.1 L (14-18) Glucose 106 (74-106) mg/dL Lactic Acid 0.5 (0.4-2.0) mmol/L Calcium 8.8 (8.5-10.1) mg/dL Magnesium (1.8-2.4) mg/dl C-Reactive Protein 0.8 (<1.0) mg/dL 03/14/18 Range/Units 05:32 WBC (3.98-10.04) K/mm3 RBC (3.98-5.22) M/mm3 Hgb (11.2-15.7) gm/L Hct (34.1-44.9) % MCV (79.4-94.8) fl MCH (25.6-32.2) pg MCHC (32.2-35.5) g/dl RDW Std Deviation (36.4-46.3) fL Plt Count (182-369) K/mm3 MPV (9.4-12.3) fl Neut % (Auto) (34.0-71.1) % Lymph % (Auto) (19.3-51.7) % [place] % (Auto) (4.7-12.5) % Eos % (Auto) (0.7-5.8) Baso % (Auto) (0.1-1.2) % Neut # (Auto) (1.56-6.13) K/mm3 Lymph # (Auto) (1.18-3.74) K/mm3 [place] # (Auto) (0.24-0.36) K/mm3 Eos # (Auto) (0.04-0.36) K/mm3 Baso # (Auto) (0.01-0.08) K/mm3 Manual Slide Review Sodium (136-145) mEq/L Potassium (3.5-5.1) mEq/L Chloride (98-107) mEq/L Carbon Dioxide (21-32) mEq/L Anion Gap (5-15) BUN (7-18) mg/dL Creatinine (0.55-1.02) mg/dL Est Cr Clr Drug Dosing mL/min Estimated GFR (MDRD) (>60) mL/min BUN/Creatinine Ratio (14-18) Glucose (74-106) mg/dL Lactic Acid (0.4-2.0) mmol/L Calcium (8.5-10.1) mg/dL Magnesium 2.2 (1.8-2.4) mg/dl C-Reactive Protein (<1.0) mg/dL Med Orders - Current: Current Medications Discontinued Medications Acetaminophen (Tylenol) 650 mg PO Q4H PRN PRN Reason: Pain/Fever Last Admin: 03/11/18 06:57 Dose: 650 mg Acetaminophen (Tylenol) 650 mg PO Q6H PRN PRN Reason: Pain/Fever Al Hydroxide/Mg Hydroxide 30 (ml/ Lidocaine HCl 15 ml) 0 ml PO Q8HR@0700,1400, 2100 [facility] Last Admin: 03/14/18 14:02 Dose: Not Given Hydromorphone HCl (Dilaudid) 0.5 mg IVPUSH ONETIME ONE Stop: 03/10/18 20:26 Last Admin: 03/10/18 20:55 Dose: 0.5 mg Hydromorphone HCl (Dilaudid) 0.5 mg IVPUSH ONETIME ONE Stop: 03/10/18 22:35 Last Admin: 03/10/18 23:05 Dose: 0.5 mg Hydromorphone HCl (Dilaudid) 0.25 mg IVPUSH Q4H PRN PRN Reason: Pain Last Admin: 03/11/18 01:20 Dose: 0.25 mg Hydromorphone HCl (Dilaudid) 0.25 mg IVPUSH Q4H PRN PRN Reason: Pain Hydromorphone HCl (Dilaudid) 1 mg IV ONETIME ONE Stop: 03/11/18 18:32 Last Admin: 03/11/18 18:39 Dose: 1 mg Hydromorphone HCl (Dilaudid) 1 mg IVPUSH ONETIME ONE Stop: 03/11/18 20:32 Last Admin: 03/11/18 21:08 Dose: 1 mg Hydromorphone HCl (Dilaudid) 1 mg IVPUSH Q6H PRN PRN Reason: Pain Last Admin: 03/12/18 15:59 Dose: 1 mg Sodium Chloride (Normal Saline) 1,000 mls @ 999 mls/hr IV ONETIME ONE Stop: 03/10/18 21:24 Last Admin: 03/10/18 20:54 Dose: 999 mls/hr Sodium Chloride (Normal Saline) 1,000 mls @ 125 mls/hr IV ONETIME ONE Stop: 03/11/18 06:38 Last Admin: 03/10/18 23:06 Dose: 125 mls/hr Acyclovir 400 mg/ Sodium (Chloride) 108 mls @ 100 mls/hr IV NOW STA Stop: 03/11/18 00:30 Last Admin: 03/10/18 23:50 Dose: 100 mls/hr Acyclovir 385 mg/ Sodium (Chloride) 107.7 mls @ 100 mls/hr IV Q8H [facility] Last Admin: 03/14/18 08:41 Dose: 100 mls/hr Lactated Ringer's (Ringers, Lactated) 1,000 mls @ 999 mls/hr IV ASDIRECTED [facility] Stop: 03/12/18 02:31 Last Admin: 03/11/18 02:47 Dose: 999 mls/hr Lactated Ringer's (Ringers, Lactated) 1,000 mls @ 100 mls/hr IV ASDIRECTED [facility] Last Admin: 03/13/18 06:06 Dose: 100 mls/hr Promethazine HCl 12.5 mg/ (Sodium Chloride) 50.5 mls @ 100 mls/hr IV Q6H [facility] Last Admin: 03/12/18 06:46 Dose: 100 mls/hr Promethazine HCl 12.5 mg/ (Sodium Chloride) 50.5 mls @ 100 mls/hr IV Q6H PRN PRN Reason: NAUSEA/VOMITING Ibuprofen (Motrin) 600 mg PO Q6H PRN PRN Reason: Pain Last Admin: 03/13/18 16:32 Dose: 600 mg Iopamidol (Isovue-300 (61%)) 80 ml IVPUSH ONETIME ONE Stop: 03/11/18 00:16 Last Admin: 03/11/18 00:16 Dose: 80 ml Ketorolac Tromethamine (Toradol) 30 mg IVPUSH ONETIME ONE Stop: 03/10/18 20:26 Last Admin: 03/10/18 20:58 Dose: 30 mg Ketorolac Tromethamine (Toradol) 30 mg IM ONETIME ONE Stop: 03/10/18 23:27 Last Admin: 03/10/18 23:50 Dose: 30 mg Ketorolac Tromethamine (Toradol) 30 mg IVPUSH Q6H [facility] Stop: 03/13/18 00:01 Last Admin: 03/13/18 00:46 Dose: 30 mg Lorazepam (Ativan) 0.25 mg IVPUSH ONETIME ONE Stop: 03/11/18 00:56 Last Admin: 03/11/18 01:22 Dose: 0.25 mg Magnesium Hydroxide (Milk Of Magnesia) 30 ml PO ONETIME ONE Stop: 03/11/18 18:13 Last Admin: 03/11/18 18:57 Dose: 30 ml Miscellaneous Information (Remove Patch) 1 ea TRDERM Q72H PRN PRN Reason: IF USED Ondansetron HCl (Zofran) 4 mg IVPUSH Q8H PRN PRN Reason: Nausea Last Admin: 03/13/18 22:27 Dose: 4 mg Oxycodone HCl (Oxycontin) 10 mg PO Q12H [facility] Last Admin: 03/14/18 08:40 Dose: 10 mg Phenol/Menthol (Chloraseptic) 15 ml MUCMEM Q2H PRN PRN Reason: Sore Throat Last Admin: 03/13/18 14:21 Dose: 1 spray Scopolamine (Transderm-Scop) 1.5 mg TRDERM Q72H PRN PRN Reason: Nausea Last Admin: 03/11/18 06:29 Dose: 1.5 mg Sodium Chloride (Saline Flush) 10 ml FLUSH ASDIRECTED PRN PRN Reason: Keep Vein Open Last Admin: 03/10/18 20:54 Dose: 10 ml Temazepam (Restoril) 15 mg PO BEDTIME PRN PRN Reason: Sleep Last Admin: 03/13/18 20:09 Dose: 15 mg
== END 2018-03-14 14:15 | disposition home or self-care (01) | DRG 114 ==
LOC: JD.ED 19:48 → JD.MS 23:54
PROVIDERS: ADMIT Internal Medicine Cardiovascular Disease; ATTEND Internal Medicine Cardiovascular Disease
DX: B00.2 Herpesviral gingivostomatitis and pharyngotonsillitis (principal); M79.7 Fibromyalgia; F41.9 Anxiety disorder, unspecified; E86.0 Dehydration; Z23 Encounter for immunization
CPT/HCPCS: 36415; 70450; 70450-26; 70491; 70491-26; 80048; 80053; 83605; 83735; 85007; 85025; 85027; 86140; 86308; 90686; 92610-GN; 96361; 96365; 96366; 96372; 96375; 96376; 99284; 99285-25; A9270-GY; G0008; G0433; J0133; J1170; J1885; J2060; J2405; J2550; J7030; J7040; J7050; J7120; Q9967

== ENCOUNTER 2024-12-24 16:30 | Inpatient (IN) | payer MEDICAID ==
[2024-12-24 17:03] LABS: BASOPHILS ABSOLUTE AUTO 0.1 K/mm3 (0.0-0.2); BASOPHILS PERCENT AUTO 0.4 % (0.0-1.0); EOSINOPHILS ABSOLUTE AUTO 0.1 K/mm3 (0.0-0.4); EOSINOPHILS PERCENT AUTO 0.6 % (0.0-6.0); IMMATURE GRAN ABSOLUTE AUTO 0.45 K/mm3 (0.00-0.05); IMMATURE GRAN PERCENT AUTO 2.3 % (0.0-0.4); LYMPHOCYTES ABSOLUTE AUTO 1.7 K/mm3 (1.0-4.8); LYMPHOCYTES PERCENT AUTO 8.8 % (24.0-44.0); MEAN PLATELET VOLUME 12.3 fl (9.4-12.3); MONOCYTES ABSOLUTE AUTO 1.2 K/mm3 (0.0-0.8); MONOCYTES PERCENT AUTO 6.4 % (0.0-8.0); NEUTROPHILS ABSOLUTE AUTO 15.8 K/mm3 (1.8-7.7); NEUTROPHILS PERCENT AUTO 81.5 % (41.0-71.0); NRBC ABSOLUTE 0.00 (0.00-0.02); NRBC PERCENT 0.0 % (0.0-0.2); PLATELET COUNT,PLT 257 K/mm3 (150-400); RED BLOOD CELL COUNT 4.56 M/mm3 (4.10-5.30); WHITE BLOOD CELL COUNT,WBC 19.41 K/mm3 (3.9-11.3)
[2024-12-24 17:13] LABS: CREATININE,URINE RAND 178.1 mg/dL (30.0-125.0); PROTEIN CREATININE RATIO,URINE 139.2 mg/g (0-149); PROTEIN,URINE RANDOM 24.8 mg/dL (0.0-11.8)
[2024-12-24 17:22] LABS: ALANINE AMINOTRANSFERASE,ALT 27.0 U/L (14-59); ASPARTATE AMNIOTRANSFERASE,AST 25.0 U/L (15-37); BLOOD UREA NITROGEN,BUN 9.0 mg/dL (7-18); CREATININE 0.7 mg/dL (0.55-1.02); EST CRCL DRUG DOSING (CG) 103.32 mL/min; ESTIMATED GFR 121.0 mL/min (>60); LACTATE DEHYDROGENASE,LDH 193.0 U/L (81-234)
[2024-12-24] MEDS ORDERED: Sodium Chloride 0.9% 10 ML Syringe FLUSH PRN (20:14)
[2024-12-24] MEDS ORDERED: Nalbuphine 10 MG/1 ML Vial IVPUSH PRN (20:14)
[2024-12-24] MEDS ORDERED: Oxytocin/0.9 % Sodium Chloride 30 UNIT/500 ML BAG IV SCH (20:15)
[2024-12-24] MEDS: Misoprostol 25 MCG (1/4 of 100 MCG) Tab VAG PRN (20:30)
[2024-12-24] MEDS ORDERED: Sodium Chloride 0.9% 10 ML Syringe FLUSH SCH (21:00)
[2024-12-24] MEDS: Ondansetron 4 MG/2 ML SDV IVPUSH PRN (21:30)
[2024-12-25] MEDS ORDERED: Phenylephrine 1% 10 MG/ML SDV ONE
[2024-12-25] MEDS ORDERED: ePHEDrine 50 MG/ML SDV IVPUSH PRN (00:53)
[2024-12-25] MEDS ORDERED: diphenhydrAMINE 50 MG/ML SDV IVPUSH PRN (00:53)
[2024-12-25] MEDS: Lactated Ringers 1,000 ML IV SCH (00:56)
[2024-12-25] MEDS: Bupivacaine/fentaNYL/NS 100 ML Bag EPIDUR PRN (01:36)
[2024-12-25] MEDS ORDERED: fentaNYL 100 MCG/2 ML SDV ONE (06:30)
[2024-12-25] MEDS ORDERED: dexmedeTOMIDine HCl 200 MCG/2 ML SDV ONE (06:30)
[2024-12-25] MEDS: Oxytocin/0.9 % Sodium Chloride 30 UNIT/500 ML BAG IV SCH (08:23)
[2024-12-25] MEDS ORDERED: Oxytocin/0.9 % Sodium Chloride 30 UNIT/500 ML BAG IV SCH (10:31)
[2024-12-25] MEDS ORDERED: Magnesium Hydroxide 400 MG/5 ML Susp 30 ML Cup PO PRN (10:31)
[2024-12-25] MEDS: Benzocaine/Menthol 20%-0.5% Spray 78 GM Cannister TOP PRN (11:00)
[2024-12-25] MEDS: Witch Hazel Medicated Pads 40/Jar TOP PRN (11:00)
[2024-12-25] MEDS: Prenatal Multivitamin with Calcium/Folic Acid/Iron Tab PO SCH (17:35)
[2024-12-26] MEDS: Ferrous Sulfate 324 MG Tab.EC PO SCH (19:55)
== END 2024-12-27 12:40 | disposition home or self-care (01) | DRG 807 ==
LOC: JD.OBCHECK 16:30 → JD.OB 16:35 → JD.OBCHECK 20:11 → JD.OB 20:11 → OBSVTOIN 12-25 08:22 → JD.OB 12-25 08:23
PROVIDERS: ADMIT Obstetrics & Gynecology; ATTEND Obstetrics & Gynecology
PROC: 10E0XZZ Delivery of Products of Conception, External Approach (ICD-10-PCS; principal; 2024-12-25)
PROC: 0KQM0ZZ Repair Perineum Muscle, Open Approach (ICD-10-PCS; 2024-12-25)
PROC: 10907ZC Drainage of Amniotic Fluid, Therapeutic from Products of Conception, Via Natural or Artificial Opening (ICD-10-PCS; 2024-12-25)
PROC: 3E0P7VZ Introduction of Hormone into Female Reproductive, Via Natural or Artificial Opening (ICD-10-PCS; 2024-12-25)
PROC: 3E033VJ Introduction of Other Hormone into Peripheral Vein, Percutaneous Approach (ICD-10-PCS; 2024-12-25)
PROC: 0U7C7DJ Dilation of Cervix with Intraluminal Device, Temporary, Via Natural or Artificial Opening (ICD-10-PCS; 2024-12-25)
PROC: 3E0R3BZ Introduction of Anesthetic Agent into Spinal Canal, Percutaneous Approach (ICD-10-PCS; 2024-12-25)
PROC: 00HU33Z Insertion of Infusion Device into Spinal Canal, Percutaneous Approach (ICD-10-PCS; 2024-12-25)
DX: O13.4 Gestational [pregnancy-induced] hypertension without significant proteinuria, complicating childbirth (principal); Z37.0 Single live birth; O99.344 Other mental disorders complicating childbirth; F41.9 Anxiety disorder, unspecified; O70.1 Second degree perineal laceration during delivery; F32.A Depression, unspecified; Z90.89 Acquired absence of other organs; Z98.890 Other specified postprocedural states; Z3A.39 39 weeks gestation of pregnancy
CPT/HCPCS: 36415; 51702; 59025; 59409; 72170; 72170-26; 82565; 82570; 83615; 84156; 84450; 84460; 84520; 85025; 86592; A9270-GY; C1726; J2003; J2371; J2405; J2765; J3010; J3490; J7120; J7999